=== PATIENT | female | born 1970 | race Caucasian/White ===

== ENCOUNTER 2017-10-24 13:12 | Observation (INO) | payer OTHER ==
--- NOTE | 2017-10-24 13:46 | ED ---
Abdominal Pain HPI - General Source: patient, RN notes reviewed Mode of arrival: ambulatory Limitations: no limitations <Fatimah Johnson - Last Filed: 10/24/17 15:11> <Rich Adams - Last Filed: 10/24/17 16:35> - General Chief Complaint: Abdominal Pain Stated Complaint: Abd Pain Time Seen by Provider: 10/24/17 13:32 - History of Present Illness Initial Comments: This is a 46-year-old female who presents to the emergency department with chief complaint of abdominal pain. Patient states that she has been experiencing right upper quadrant and epigastric abdominal pain on and off for the past year. She states that the pain is sharp and stabbing with radiation to her back. She states that usually the pain lasts for a couple of hours and then goes away. Patient states that she ate dinner last evening. She states that she then developed the abdominal pain at around 6 PM. She states that the pain has not gone away and is constant this time. She admits to nausea but denies vomiting. Denies fevers or chills, chest pain or shortness of breath, diarrhea or constipation, dysuria or hematuria. Patient reports history of appendectomy, section, tubal ligation and uterine ablation. States she takes no medications and has no allergies. (Fatimah Johnson) - Related Data Home Medications Medication Instructions Recorded Confirmed Ranitidine HCl [Zantac] 150 mg PO DAILY PRN 10/24/17 10/24/17 Allergies Allergy/AdvReac Type Severity Reaction Status Date / Time No Known Allergies Allergy Verified 10/24/17 13:42 Review of Systems ROS Other: All systems not noted in ROS Statement are negative. <Fatimah Johnson - Last Filed: 10/24/17 15:11> ROS Other: All systems not noted in ROS Statement are negative. <Rich Adams - Last Filed: 10/24/17 16:35> ROS Statement: Those systems with pertinent positive or pertinent negative responses have been documented in the HPI. Past Medical History Past Medical History: No Reported History Past Surgical History: Ablation, Appendectomy, Section, Tubal Ligation Past Psychological History: No Psychological Hx Reported Smoking Status: Current every day smoker Past Alcohol Use History: Occasional Past Drug Use History: None Reported <Fatimah Johnson - Last Filed: 10/24/17 15:11> General Exam Limitations: no limitations <Fatimah Johnson - Last Filed: 10/24/17 15:11> <Rich Adams - Last Filed: 10/24/17 16:35> - General Exam Comments Initial Comments: General: Awake and alert, well-developed; in no apparent distress. Patient does not appear acutely ill. HEENT: Head atraumatic, normocephalic. Pupils are equal, round and reactive to light. Extraocular movements intact. Oropharynx moist without erythema or exudate. Neck: Supple. Normal ROM. Cardiovascular: Regular rate and rhythm. No murmurs, rubs or gallops. Chest symmetrical. Respiratory: Lungs clear to auscultation bilaterally. No wheezes, rales or rhonchi. Normal respiratory effort with no use of accessory muscles. Abdomen: Soft, non-distended. Tenderness on palpation of the epigastrium and right upper quadrant with associated guarding. No rigidity or rebound. Hyperactive bowel sounds in all 4 quadrants. Musculoskeletal: Normal ROM, no tenderness bilateral upper and lower extremities. Ambulating normally. Skin: [place], warm and dry without rashes or lesions. Neurological: Alert and oriented x3. CN II-XII grossly intact. Speech is fluent and answers are appropriate. No focal neuro deficits. Psychiatric: Normal mood and affect. No overt signs of depression or anxiety noted. (Fatimah Johnson) Course <Elizabeth,Fatimah Wilton - Last Filed: 10/24/17 15:11> <Rich Adams - Last Filed: 10/24/17 16:35> Vital Signs 10/24/17 10/24/17 13:18 15:01 Temperature 98.5 F Pulse Rate 83 65 Respiratory 18 18 Rate Blood Pressure 173/96 126/68 O2 Sat by Pulse 98 98 Oximetry - Reevaluation(s) Reevaluation #1: 10/24/17 16:35 I, Dr. Rich Adams, personally saw and examined the patient. I have reviewed and agree with the PA/SKIP MINER findings including all diagnostic interpretation and treatment plan. I was present for newman portions of any procedures performed and the inclusive time noted for any critical care statement. Rich Adams D.O. (Rich Adams) Medical Decision Making - Lab Data Result diagrams: 10/24/17 14:05 10/24/17 14:05 - Radiology Data Radiology results: report reviewed <Fatimah Johnson - Last Filed: 10/24/17 15:11> - Lab Data Result diagrams: 10/24/17 14:05 10/24/17 14:05 <Rich Adams - Last Filed: 10/24/17 16:35> - Medical Decision Making This is a 46-year-old female who presents to the emergency department with chief complaint of abdominal pain. Patient has had a right upper quadrant/ epigastric abdominal pain on and off for the past year. Patient reports the pain is subsequent to eating. Patient developed abdominal pain last night at 6 PM after eating dinner and the pain has not subsided. Describes the pain as a sharp and shooting with radiation to her back. Admits to nausea but denies vomiting, fevers or chills, constipation or diarrhea. CBC, CMP and UA were unremarkable. Ultrasound of the gallbladder revealed evidence for cholelithiasis with thickened gallbladder wall consistent with cholecystitis. Dr. Adams and myself discussed these findings with patient. She will be admitted to Dr. Gill. She will be started on Rocephin and Flagyl IV. She is kept nothing by mouth. Patient is in agreement for admission. Vital signs are stable and she is in no acute distress. (Fatimah Johnson) - Lab Data Lab Results 10/24/17 10/24/17 10/24/17 Range/Units 13:30 13:30 14:05 WBC (3.8-10.6) k/uL RBC (3.80-5.40) m/uL Hgb (11.4-16.0) gm/dL Hct (34.0-46.0) % MCV (80.0-100.0) fL MCH (25.0-35.0) pg MCHC (31.0-37.0) g/dL RDW (11.5-15.5) % Plt Count (150-450) k/uL Neutrophils % % Lymphocytes % % Monocytes % % Eosinophils % % Basophils % % Neutrophils # (1.3-7.7) k/uL Lymphocytes # (1.0-4.8) k/uL Monocytes # (0-1.0) k/uL Eosinophils # (0-0.7) k/uL Basophils # (0-0.2) k/uL PT (9.0-12.0) sec INR (<1.2) APTT (22.0-30.0) sec Sodium 138 (137-145) mmol/L Potassium 4.1 (3.5-5.1) mmol/L Chloride 105 (98-107) mmol/L Carbon Dioxide 25 (22-30) mmol/L Anion Gap 8 mmol/L BUN 10 (7-17) mg/dL Creatinine 0.60 (0.52-1.04) mg/dL Est GFR (CKD-EPI)AfAm >90 (>60 ml/min/1.73 sqM) Est GFR (CKD-EPI)NonAf >90 (>60 ml/min/1.73 sqM) Glucose 88 (74-99) mg/dL Calcium 9.1 (8.4-10.2) mg/dL Total Bilirubin 0.6 (0.2-1.3) mg/dL AST 26 (14-36) U/L ALT 28 (9-52) U/L Alkaline Phosphatase 81 (38-126) U/L Total Protein 7.4 (6.3-8.2) g/dL Albumin 4.5 (3.5-5.0) g/dL Amylase 44 (30-110) U/L Lipase 72 (23-300) U/L Urine Color Yellow Urine Appearance Clear (Clear) Urine pH 6.0 (5.0-8.0) Ur Specific [place] 1.016 (1.001-1.035) Urine Protein Negative (Negative) Urine Glucose (UA) Negative (Negative) Urine Ketones Negative (Negative) Urine Blood Negative (Negative) Urine Nitrite Negative (Negative) Urine Bilirubin Negative (Negative) Urine Urobilinogen <2.0 (<2.0) mg/dL Ur Leukocyte Esterase Negative (Negative) Urine HCG, Qual Not Detected (Not Detectd) 10/24/17 10/24/17 Range/Units 14:05 14:05 WBC 10.5 (3.8-10.6) k/uL RBC 4.95 (3.80-5.40) m/uL Hgb 14.3 (11.4-16.0) gm/dL Hct 44.5 (34.0-46.0) % MCV 89.9 (80.0-100.0) fL MCH 28.9 (25.0-35.0) pg MCHC 32.2 (31.0-37.0) g/dL RDW 13.2 (11.5-15.5) % Plt Count 304 (150-450) k/uL Neutrophils % 75 % Lymphocytes % 19 % Monocytes % 4 % Eosinophils % 1 % Basophils % 0 % Neutrophils # 7.8 H (1.3-7.7) k/uL Lymphocytes # 2.0 (1.0-4.8) k/uL Monocytes # 0.5 (0-1.0) k/uL Eosinophils # 0.1 (0-0.7) k/uL Basophils # 0.0 (0-0.2) k/uL PT 10.2 (9.0-12.0) sec INR 1.0 (<1.2) APTT 23.7 (22.0-30.0) sec Sodium (137-145) mmol/L Potassium (3.5-5.1) mmol/L Chloride (98-107) mmol/L Carbon Dioxide (22-30) mmol/L Anion Gap mmol/L BUN (7-17) mg/dL Creatinine (0.52-1.04) mg/dL Est GFR (CKD-EPI)AfAm (>60 ml/min/1.73 sqM) Est GFR (CKD-EPI)NonAf (>60 ml/min/1.73 sqM) Glucose (74-99) mg/dL Calcium (8.4-10.2) mg/dL Total Bilirubin (0.2-1.3) mg/dL AST (14-36) U/L ALT (9-52) U/L Alkaline Phosphatase (38-126) U/L Total Protein (6.3-8.2) g/dL Albumin (3.5-5.0) g/dL Amylase (30-110) U/L Lipase (23-300) U/L Urine Color Urine Appearance (Clear) Urine pH (5.0-8.0) Ur Specific [place] (1.001-1.035) Urine Protein (Negative) Urine Glucose (UA) (Negative) Urine Ketones (Negative) Urine Blood (Negative) Urine Nitrite (Negative) Urine Bilirubin (Negative) Urine Urobilinogen (<2.0) mg/dL Ur Leukocyte Esterase (Negative) Urine HCG, Qual (Not Detectd) - Radiology Data Ultrasound gallbladder impression: Cholelithiasis with thickened and edematous gallbladder wall correlate for cholecystitis. (Fatimah Johnson) Disposition Is patient prescribed a controlled substance at d/c from ED?: No Time of Disposition: 15:14 <Fatimah Johnson - Last Filed: 10/24/17 15:11> <Rich Adams - Last Filed: 10/24/17 16:35> Clinical Impression: Acute cholecystitis Disposition: ADMITTED IP TO THIS HOSP Condition: Good
[2017-10-24] MEDS ORDERED: ONDANSETRON 4 MG/2 ML VIAL IVP STA (14:08)
[2017-10-24] MEDS ORDERED: KETOROLAC 30 MG/ML 1 ML VIAL IVP STA (14:08)
[2017-10-24 14:20] LABS: Appearance,Urine Clear (Clear); Bilirubin,Urine Negative (Negative); Blood,Urine Negative (Negative); Color,Urine Yellow; Glucose,Urine (UA) Negative (Negative); Ketones,Urine Negative (Negative); Leukocyte Esterase,Urine Negative (Negative); Nitrite,Urine Negative (Negative); Protein,Urine Negative (Negative); Specific Gravity,Urine 1.016 (1.001-1.035); Urobilinogen,Urine <2.0 mg/dL (<2.0)
[2017-10-24 14:23] LABS: Basophils % (A) 0 %; Eosinophils # (A) 0.1 k/uL (0-0.7); Eosinophils % (A) 1 %; HCT 44.5 % (34.0-46.0); HGB 14.3 gm/dL (11.4-16.0); Lymphocytes % (A) 19 %; MCH 28.9 pg (25.0-35.0); MCHC 32.2 g/dL (31.0-37.0); MCV 89.9 fL (80.0-100.0); Mean Platelet Volume 6.8; Monocytes # (A) 0.5 k/uL (0-1.0); Monocytes % (A) 4 %; Neutrophils # (A) 7.8 k/uL (1.3-7.7); Neutrophils % (A) 75 %; Platelet Count 304 k/uL (150-450); RBC 4.95 m/uL (3.80-5.40); RDW 13.2 % (11.5-15.5); WBC 10.5 k/uL (3.8-10.6)
[2017-10-24 14:29] LABS: Partial Thromboplastin Time 23.7 sec (22.0-30.0); Prothrombin Time 10.2 sec (9.0-12.0)
[2017-10-24 14:31] LABS: ALT 28 U/L (9-52); AST 26 U/L (14-36); Albumin 4.5 g/dL (3.5-5.0); Alkaline Phosphatase 81 U/L (38-126); Amylase 44 U/L (30-110); Anion Gap 8 mmol/L; Blood Urea Nitrogen 10 mg/dL (7-17); Calcium 9.1 mg/dL (8.4-10.2); Carbon Dioxide 25 mmol/L (22-30); Chloride 105 mmol/L (98-107); Glucose 88 mg/dL (74-99); Lipase 72 U/L (23-300); Sodium 138 mmol/L (137-145); Total Bilirubin 0.6 mg/dL (0.2-1.3); Total Protein 7.4 g/dL (6.3-8.2)
[2017-10-24 14:36] LABS: Potassium 4.1 mmol/L (3.5-5.1)
--- NOTE | 2017-10-24 14:45 | US ---
EXAMINATION TYPE: US gallbladder DATE OF EXAM: 10/24/2017 COMPARISON: NONE CLINICAL HISTORY: Pain. Intermittent epigastric pain for 1 year, getting worse EXAM MEASUREMENTS: Liver Length: 13.4 cm Gallbladder Wall: 0.7 cm CBD: 0.5 cm Right Kidney: 10.9 x 4.7 x 4.4 cm Pancreas: limited evaluation due to overlying bowel content Liver: wnl Gallbladder: multiple stones, thickened edematous wall Evidence for sonographic Eller's sign: yes CBD: wnl Right Kidney: no evidence of hydronephrosis IMPRESSION: 1. Cholelithiasis with thickened and edematous gallbladder wall correlate for cholecystitis.
[2017-10-24] MEDS ORDERED: ACETAMINOPHEN TAB 325 MG TAB PO PRN (15:19)
[2017-10-24] MEDS ORDERED: KETOROLAC 30 MG/ML 1 ML VIAL IVP PRN (15:19)
[2017-10-24] MEDS ORDERED: NALOXONE 0.4 MG/ML 1 ML VIAL IV PRN (15:19)
[2017-10-24] MEDS ORDERED: MORPHINE SULFATE 4 MG/ML SYRINGE IV PRN (15:19)
[2017-10-24] MEDS ORDERED: ONDANSETRON 4 MG/2 ML VIAL IVP PRN (15:19)
[2017-10-24] MEDS ORDERED: SODIUM CHLORIDE 0.9% 1,000 ML IV SCH (15:30)
[2017-10-24] MEDS: cefTRIAXone IN SWFI 1,000 MG/10 ML SYRINGE IVP SCH (16:10)
[2017-10-24] MEDS: metroNIDAZOLE-NS PMX 500 MG in SALINE 1 100ML.BAG IVPB SCH (16:15)
[2017-10-24] MEDS: KETOROLAC 30 MG/ML 1 ML VIAL IVP PRN (18:33)
--- NOTE | 2017-10-24 19:07 | P.GSHP ---
History of Present Illness H&P Date: 10/24/17 46-year-old female presents to the emergency department with complaints of epigastric pain that began at night. She states that she has had multiple episodes of this over the last year. She states that every episode has gotten worse. She has not sought out workup for this in the past. She complained of some nausea but denied any emesis episodes. She states her last meal was a avocado and chicken sandwich with kinyarwanda fries. She denies any emesis. She denies any change in bowel function. She states that since her admission to the hospital, her pain has mildly improved. She denies any fevers, chills, chest pain or shortness of breath. She has no additional complaints at this time. - Review of Systems All systems: negative Past Medical History Past Medical History: No Reported History History of Any Multi-Drug Resistant Organisms: None Reported Past Surgical History: Ablation, Appendectomy, Section, Tubal Ligation Past Anesthesia/Blood Transfusion Reactions: No Reported Reaction Past Psychological History: No Psychological Hx Reported Smoking Status: Current every day smoker Past Alcohol Use History: Occasional Past Drug Use History: None Reported Medications and Allergies Home Medications Medication Instructions Recorded Confirmed Type Ranitidine HCl [Zantac] 150 mg PO DAILY PRN 10/24/17 10/24/17 History Allergies Allergy/AdvReac Type Severity Reaction Status Date / Time No Known Allergies Allergy Verified 10/24/17 13:42 Surgical - Exam Osteopathic Statement: *. No significant issues noted on an osteopathic structural exam other than those noted in the History and Physical/Consult. Vital Signs Temp Pulse Resp BP Pulse Ox 98.5 F 83 18 173/96 98 10/24/17 13:18 10/24/17 13:18 10/24/17 13:18 10/24/17 13:18 10/24/17 13:18 - General well developed, well nourished, no distress - Eyes PERRL, normal ocular movement - ENT normal mucosa, no hearing loss - Neck trachea midline - Respiratory No difficulty with respiration - Abdomen Soft, mild tenderness in the epigastrium, distended, no rebound, no guarding - Neurologic normal sensation - Psychiatric oriented to time, oriented to person, oriented to place, speech is normal, memory intact Results - Labs 10/24/17 14:05 10/24/17 14:05 Abnormal Lab Results - Last 24 Hours (Table) 10/24/17 Range/Units 14:05 Neutrophils # 7.8 H (1.3-7.7) k/uL Diabetes panel 10/24/17 Range/Units 14:05 Sodium 138 (137-145) mmol/L Potassium 4.1 (3.5-5.1) mmol/L Chloride 105 (98-107) mmol/L Carbon Dioxide 25 (22-30) mmol/L BUN 10 (7-17) mg/dL Creatinine 0.60 (0.52-1.04) mg/dL Glucose 88 (74-99) mg/dL Calcium 9.1 (8.4-10.2) mg/dL AST 26 (14-36) U/L ALT 28 (9-52) U/L Alkaline Phosphatase 81 (38-126) U/L Total Protein 7.4 (6.3-8.2) g/dL Albumin 4.5 (3.5-5.0) g/dL Calcium panel 10/24/17 Range/Units 14:05 Calcium 9.1 (8.4-10.2) mg/dL Albumin 4.5 (3.5-5.0) g/dL Pituitary panel 10/24/17 Range/Units 14:05 Sodium 138 (137-145) mmol/L Potassium 4.1 (3.5-5.1) mmol/L Chloride 105 (98-107) mmol/L Carbon Dioxide 25 (22-30) mmol/L BUN 10 (7-17) mg/dL Creatinine 0.60 (0.52-1.04) mg/dL Glucose 88 (74-99) mg/dL Calcium 9.1 (8.4-10.2) mg/dL Adrenal panel 10/24/17 Range/Units 14:05 Sodium 138 (137-145) mmol/L Potassium 4.1 (3.5-5.1) mmol/L Chloride 105 (98-107) mmol/L Carbon Dioxide 25 (22-30) mmol/L BUN 10 (7-17) mg/dL Creatinine 0.60 (0.52-1.04) mg/dL Glucose 88 (74-99) mg/dL Calcium 9.1 (8.4-10.2) mg/dL Total Bilirubin 0.6 (0.2-1.3) mg/dL AST 26 (14-36) U/L ALT 28 (9-52) U/L Alkaline Phosphatase 81 (38-126) U/L Total Protein 7.4 (6.3-8.2) g/dL Albumin 4.5 (3.5-5.0) g/dL - Imaging US - abdomen: report reviewed (Bladder wall thickening noted, gallstones noted, pericholecystic fluid noted) Assessment and Plan (1) Acute cholecystitis Narrative/Plan: I did review the abdominal ultrasound with notable gallbladder wall thickening, pericholecystic fluid and gallstones. With findings and symptoms confirming acute cholecystitis, we will begin the patient on antibiotics. Keep the patient nothing by mouth and plan for laparoscopic cholecystectomy. Continue IV fluids. More recommendations after surgery. Current Visit: Yes Status: Acute Code(s): K81.0 - ACUTE CHOLECYSTITIS SNOMED Code(s): 76368293
[2017-10-25] MEDS: SODIUM CHLORIDE 0.9% 1,000 ML IV SCH ×3 (00:06→18:09)
[2017-10-25] MEDS: metroNIDAZOLE-NS PMX 500 MG in SALINE 1 100ML.BAG IVPB SCH ×3 (00:15→18:08)
[2017-10-25] MEDS: cefTRIAXone IN SWFI 1,000 MG/10 ML SYRINGE IVP SCH (08:00)
[2017-10-25] MEDS: KETOROLAC 30 MG/ML 1 ML VIAL IVP PRN ×2 (08:00→18:15)
[2017-10-25 09:43] LABS: ALT 27 U/L (9-52); AST 14 U/L (14-36); Alkaline Phosphatase 68 U/L (38-126); Anion Gap 5 mmol/L; Bilirubin, Delta 0.1 mg/dL (0.0-0.2); Bilirubin,Unconjugated 0.2 mg/dL (0.0-1.1); Blood Urea Nitrogen 11 mg/dL (7-17); Calcium 8.2 mg/dL (8.4-10.2); Carbon Dioxide 28 mmol/L (22-30); Chloride 107 mmol/L (98-107); Glucose 82 mg/dL (74-99); Potassium 4.2 mmol/L (3.5-5.1); Sodium 140 mmol/L (137-145); Total Bilirubin 0.3 mg/dL (0.2-1.3); Total Protein 5.3 g/dL (6.3-8.2)
[2017-10-25 09:52] LABS: Basophils % (A) 0 %; Eosinophils # (A) 0.1 k/uL (0-0.7); Eosinophils % (A) 2 %; HCT 36.8 % (34.0-46.0); HGB 11.6 gm/dL (11.4-16.0); Lymphocytes # (A) 1.4 k/uL (1.0-4.8); Lymphocytes % (A) 35 %; MCH 28.9 pg (25.0-35.0); MCHC 31.7 g/dL (31.0-37.0); MCV 91.4 fL (80.0-100.0); Mean Platelet Volume 6.8; Monocytes # (A) 0.3 k/uL (0-1.0); Monocytes % (A) 8 %; Neutrophils # (A) 2.1 k/uL (1.3-7.7); Neutrophils % (A) 53 %; Platelet Count 223 k/uL (150-450); RBC 4.02 m/uL (3.80-5.40); RDW 13.3 % (11.5-15.5)
[2017-10-25] MEDS ORDERED: IV FLUID CONTINUATION 1,000 ML IV ONE (14:37)
[2017-10-25] MEDS ORDERED: LACTATED RINGERS 1,000 ML IV ONE (14:57)
[2017-10-25] MEDS ORDERED: DEXAMETHASONE SOD PHOSPHATE 10 MG/ML 1 ML VIAL IV ONE (15:02)
[2017-10-25] MEDS ORDERED: HEPARIN SODIUM,PORCINE 5,000 UNIT/ML 1 ML VIAL SQ ONE (15:07)
[2017-10-25] MEDS ORDERED: GLYCOPYRROLATE 0.2 MG/ML 2 ML VIAL ONE (15:10)
[2017-10-25] MEDS ORDERED: ROCURONIUM BROMIDE 10 MG/ML 10 ML VIAL IV ONE (15:10)
[2017-10-25] MEDS ORDERED: LIDOCAINE 1% INJ 10MG/ML (20 ML MDV) ONE (15:10)
[2017-10-25] MEDS ORDERED: SUCCINYLCHOLINE CHLORIDE 100 MG/5 ML SYR IV ONE (15:10)
[2017-10-25] MEDS ORDERED: PROPOFOL 10 MG/ML 20 ML VIAL IV ONE (15:10)
[2017-10-25] MEDS ORDERED: NEOSTIGMINE 1 MG/ML 10 ML VIAL ONE (15:10)
[2017-10-25] MEDS ORDERED: fentaNYL (PF) 50 MCG/ML 2 ML AMP ONE (15:10)
[2017-10-25] MEDS ORDERED: MIDAZOLAM 2 MG/2 ML VIAL ONE (15:10)
[2017-10-25] MEDS ORDERED: BUPIVACAINE (PF) 0.5% 30 ML VIAL SQ ONE (15:29)
[2017-10-25] MEDS ORDERED: MORPHINE SULFATE 2 MG/ML SYRINGE IV PRN (16:13)
--- NOTE | 2017-10-25 16:18 | P.OP ---
Date of Procedure: 10/25/17 Preoperative Diagnosis: Acute cholecystitis Postoperative Diagnosis: Acute cholecystitis Procedure(s) Performed: Laparoscopic cholecystectomy Anesthesia: GUILLE Surgeon: Shirley Gill Estimated Blood Loss (ml): 10 Pathology: other (Gallbladder and contents) Condition: stable Disposition: floor Indications for Procedure: 46-year-old female presented to the emergency department with epigastric and right upper quadrant pain that had been worsening. Secondary to this, workup was performed that illustrated a acute cholecystitis. Secondary this, plan was made for laparoscopic cholecystectomy. The patient was excellent the risks, benefits and alternatives to the procedure. She did provide consent prior to attending the operating suite. Operative Findings: Edematous gallbladder Description of Procedure: The patient was brought into the operating suite and placed in supine position on the operating table. Sedation was provided by anesthesia and the patient underwent endotracheal intubation. The patient was then prepped and draped in regular sterile fashion. Local anesthetic was administered and an infraumbilical incision was made. Dissection was carried to the fascia. Fascia was incised and a 12 mm trocar was entered into the abdomen. Pneumoperitoneum was then achieved. The patient was placed in appropriate position and 3 additional 5 mm ports were placed. One port was placed in the subxiphoid region. 2 additional 5 mm ports were placed in the right upper quadrant. The gallbladder was then grasped and retracted. Dissection was carried along the infundibulum and the cystic duct and cystic artery were visualized. Both the cystic duct and cystic artery were skeletonized. 2 clips were placed proximally on the cystic duct one was placed distally and the cystic duct was ligated. 2 clips were placed proximally on the cystic artery one was placed distally and the cystic artery was ligated. A elective cautery was then used to dissect the gallbladder from the gallbladder fossa on the liver bed. The gallbladder was then placed in an Endo Catch bag and removed from the abdomen. Hemostasis was maintained with electrocautery. Irrigation was then used in the right upper quadrant and suctioned. At this point all trochars removed from the abdomen under direct visualization and pneumoperitoneum was released. The infra umbilical port site fascia was closed with multiple [id number] 0 Vicryl sutures. All skin incisions were then closed with 4-0 Vicryl subcuticular sutures. The patient was awakened in the operating suite and taken to postanesthesia care unit in stable condition.
[2017-10-25 16:31] VITALS: RESP 16
[2017-10-25] MEDS ORDERED: HYDROmorphone 1 MG/ML 1 ML SYRINGE IVP ONE (17:28)
[2017-10-25] MEDS: HYDROcodone/APAP 5-325MG 1 EACH TAB PO PRN (18:09)
[2017-10-26] MEDS: SODIUM CHLORIDE 0.9% 1,000 ML IV SCH ×2 (00:22→07:54)
[2017-10-26] MEDS: metroNIDAZOLE-NS PMX 500 MG in SALINE 1 100ML.BAG IVPB SCH ×2 (00:22→07:54)
[2017-10-26] MEDS: KETOROLAC 30 MG/ML 1 ML VIAL IVP PRN ×2 (03:46→12:25)
[2017-10-26] MEDS: HYDROcodone/APAP 5-325MG 1 EACH TAB PO PRN ×2 (06:07→12:25)
[2017-10-26 06:14] VITALS: BP 106/71; PULSE 64; TEMP 97.6
[2017-10-26] MEDS: cefTRIAXone IN SWFI 1,000 MG/10 ML SYRINGE IVP SCH (07:54)
[2017-10-26 08:58] LABS: Basophils % (A) 0 %; Eosinophils % (A) 0 %; HCT 32.8 % (34.0-46.0); HGB 10.3 gm/dL (11.4-16.0); Lymphocytes % (A) 9 %; MCH 29.1 pg (25.0-35.0); MCHC 31.6 g/dL (31.0-37.0); MCV 92.3 fL (80.0-100.0); Mean Platelet Volume 6.3; Monocytes # (A) 0.4 k/uL (0-1.0); Monocytes % (A) 3 %; Neutrophils # (A) 9.7 k/uL (1.3-7.7); Neutrophils % (A) 87 %; Platelet Count 267 k/uL (150-450); RBC 3.55 m/uL (3.80-5.40); RDW 13.1 % (11.5-15.5); WBC 11.1 k/uL (3.8-10.6)
[2017-10-26 09:15] LABS: ALT 47 U/L (9-52); AST 49 U/L (14-36); Albumin 3.1 g/dL (3.5-5.0); Alkaline Phosphatase 67 U/L (38-126); Anion Gap 6 mmol/L; Bilirubin, Delta 0.2 mg/dL (0.0-0.2); Bilirubin,Unconjugated 0.1 mg/dL (0.0-1.1); Blood Urea Nitrogen 7 mg/dL (7-17); Calcium 8.4 mg/dL (8.4-10.2); Carbon Dioxide 23 mmol/L (22-30); Chloride 111 mmol/L (98-107); Glucose 101 mg/dL (74-99); Potassium 4.8 mmol/L (3.5-5.1); Sodium 140 mmol/L (137-145); Total Bilirubin 0.3 mg/dL (0.2-1.3); Total Protein 5.2 g/dL (6.3-8.2)
--- NOTE | 2017-10-26 09:32 | P.DS ---
Providers Date of admission: 10/24/17 15:21 Attending physician: Shirley Gill DO Primary care physician: Leobardo Arguello - Discharge Diagnosis(es) (1) Acute cholecystitis Current Visit: Yes Status: Acute Hospital Course: 46-year-old female was admitted secondary to epigastric pain and right upper quadrant pain. Diagnosis was acute cholecystitis that was found on workup. On admission day #1, the patient did have a laparoscopic cholecystectomy. She improved from this and postoperative day #1. The pain was well-controlled. The patient denied any nausea. She was tolerating a soft diet. At this point, the patient was deemed stable for discharge. Procedures: Laparoscopic cholecystectomy Patient Condition at Discharge: Good Plan - Discharge Summary Discharge Rx Participant: No New Discharge Prescriptions: New HYDROcodone/APAP 5-325MG [[place] 5-325] 1 each PO Q6HR PRN #12 tab PRN Reason: Moderate Pain Continue Ranitidine HCl [Zantac] 150 mg PO DAILY PRN PRN Reason: Heartburn Discharge Medication List Ranitidine HCl [Zantac] 150 mg PO DAILY PRN 10/24/17 [History] HYDROcodone/APAP 5-325MG [[place] 5-325] 1 each PO Q6HR PRN #12 tab 10/26/17 [Rx] Follow up Appointment(s)/Referral(s): Leobardo Arguello DO [Primary Care Provider] - 10/28/17 3:20 pm Shirley Gill DO [Doctor of Osteopathic Medicine] - 11/07/17 1:45 pm Patient Instructions/Handouts: Laparoscopic Cholecystectomy (DC) Activity/Diet/Wound Care/Special Instructions: Avoid swimming, baths while incisions are healing Avoid fatty, fried, greasy foods No lifting greater than 5 pounds Discharge Disposition: HOME SELF-CARE
[2017-10-26] MEDS ORDERED: metroNIDAZOLE 500 MG TAB PO SCH (16:00)
== END 2017-10-26 13:32 | disposition home or self-care (01) ==
LOC: EC 13:12 → INTOOBSV 15:21 → 4MS4W 15:21 → UNDODISIN 10-26 13:32
PROVIDERS: ADMIT Surgery; ATTEND Surgery
PROC: 0FT44ZZ Resection of Gallbladder, Percutaneous Endoscopic Approach (ICD-10-PCS; principal; 2017-10-25 08:25)
DX: K80.12 Calculus of gallbladder with acute and chronic cholecystitis without obstruction (principal); F17.200 Nicotine dependence, unspecified, uncomplicated; K82.8 Other specified diseases of gallbladder
CPT/HCPCS: 47562; 96376 ×2; 96361 ×3; 96366; 96375 ×2; 96365; 99285; 36415; 81025 ×2; 88304; 80053; 80048 ×2; 80076 ×2; 82150; 83690; 85025 ×3; 85610; 85730; 81003; 87040; 76705; G0378 ×3; J2250; J2270 ×2; J1644; J1100; J2710; J2405; J2001; J0696 ×3; J3010; J1885 ×3; J1170; J0330; J2704

== ENCOUNTER 2019-07-23 19:22 | Emergency (ER) | payer BC, OTHER ==
[2019-07-23 19:28] VITALS: TEMP 97.8
--- NOTE | 2019-07-23 19:58 | ED ---
Chest Pain HPI - General Chief Complaint: Chest Pain Stated Complaint: Chest Pain Time Seen by Provider: 07/23/19 19:30 Source: patient, RN notes reviewed Mode of arrival: ambulatory Limitations: no limitations - History of Present Illness Initial Comments: This is a 40-year-old female with a benign past history other than smoking who states that she had the onset about 40 minutes prior to arrival of mid and right-sided upper chest pain sharp in nature 9/10 severity to radiate up to her neck. Seem to get worse with movement or deep breathing. It lasted perhaps no 40 minutes for the [place] area to driving up here. Currently she is pain-free she said that she felt "weird". She has improved she states she has similar episode about 6 months ago that did not last this long. She does have a history of cholecystectomy and appendectomy no history of any heart or lung disease that she is aware of no family history of heart disease except for mitral valve prolapse and her mother or lung disease at early age no aortic disorders. She's had no other illnesses recently no heavy lifting coughing sneezing no trauma. No other modifying factors. MD Complaint: chest pain - Related Data Home Medications Medication Instructions Recorded Confirmed Ranitidine HCl [Zantac] 150 mg PO DAILY PRN 10/24/17 10/24/17 Previous Rx's Medication Instructions Recorded HYDROcodone/APAP 5-325MG [[place] 1 each PO Q6HR PRN #12 tab 10/26/17 5-325] Dicyclomine [Bentyl] 10 mg PO TID PRN #12 capsule 07/23/19 Allergies Allergy/AdvReac Type Severity Reaction Status Date / Time No Known Allergies Allergy Verified 10/24/17 13:42 Review of Systems ROS Statement: Those systems with pertinent positive or pertinent negative responses have been documented in the HPI. ROS Other: All systems not noted in ROS Statement are negative. EKG Findings - EKG Results: EKG: interpreted by ERMD, sinus rhythm, normal axis, normal QRS, normal ST/T, no acute changes (Normal sinus rhythm a 69. Interval 124 QRS duration 78 QT since QTC 46/[address] configuration.), not changed from: Past Medical History Past Medical History: No Reported History History of Any Multi-Drug Resistant Organisms: None Reported Past Surgical History: Ablation, Appendectomy, Section, Cholecystectomy, Tubal Ligation Past Anesthesia/Blood Transfusion Reactions: No Reported Reaction Past Psychological History: No Psychological Hx Reported Smoking Status: Current every day smoker Past Alcohol Use History: Occasional Past Drug Use History: None Reported General Exam - General Exam Comments Initial Comments: This is a well-developed well-nourished awake alert oriented 3 female Limitations: no limitations General appearance: alert, anxious Head exam: Present: atraumatic, normocephalic, normal inspection Eye exam: Present: normal appearance, PERRL, EOMI. Absent: scleral icterus, conjunctival injection, periorbital swelling ENT exam: Present: normal exam, mucous membranes moist Neck exam: Present: normal inspection, full ROM, other (Stridor JVD or bruits). Absent: tenderness, meningismus, lymphadenopathy Respiratory exam: Present: normal lung sounds bilaterally. Absent: respiratory distress, wheezes, rales, rhonchi, stridor Cardiovascular Exam: Present: regular rate, normal rhythm, normal heart sounds. Absent: systolic murmur, diastolic murmur, rubs, gallop, clicks GI/Abdominal exam: Present: soft, normal bowel sounds. Absent: distended, tenderness, guarding, rebound, rigid Extremities exam: Present: normal inspection, full ROM, normal capillary refill. Absent: tenderness, pedal edema, joint swelling, calf tenderness Back exam: Present: normal inspection Neurological exam: Present: alert, oriented X3, CN II-XII intact Psychiatric exam: Present: normal affect, normal mood Skin exam: Present: warm, dry, intact, normal color. Absent: rash Course Vital Signs 07/23/19 07/23/19 07/23/19 19:25 19:47 20:00 Temperature 97.8 F Pulse Rate 84 74 Pulse Rate [ 69 [employer] ] Respiratory 18 18 Rate Blood Pressure 167/85 164/79 O2 Sat by Pulse 100 99 Oximetry 07/23/19 21:00 Temperature Pulse Rate 59 L Pulse Rate [ [employer] ] Respiratory 16 Rate Blood Pressure 121/69 O2 Sat by Pulse 99 Oximetry Procedures - Smoking Cessation Time Spent Discussing Smoking Cessation w/Patient (Minutes): 3 Patient Acknowledges Need for Cessation: Yes Chest Pain MDM - MDM I did review the imaging and report no acute findings. I did discuss the suspected findings with the patient the initial lab work and workup is negative for evidence of cardiac or pulmonary disease. The likely reason taken secondary to esophageal spasm. Additionally the patient may have an atypical chest wall type discomfort though the clinical exam is not evident. We did a long discussion about the likely possibilities she will be placed on a short courses of Bentyl with follow-up with her doctor I did recommend an outpatient stress test. We also did discuss smoking cessation. Disposition Clinical Impression: Atypical chest pain, Esophageal spasm, Smoking Disposition: HOME SELF-CARE Condition: Good Instructions (If sedation given, give patient instructions): Chest Pain (ED), Esophageal Spasm (ED) Additional Instructions: Medication prescription sent to your preferred pharmacy Prescriptions: Dicyclomine [Bentyl] 10 mg PO TID PRN #12 capsule PRN Reason: Pain Is patient prescribed a controlled substance at d/c from ED?: No Referrals: Leobardo Arguello DO [Primary Care Provider] - 1-2 days
[2019-07-23 20:03] LABS: Basophils % (A) 1 %; Eosinophils # (A) 0.2 k/uL (0-0.7); Eosinophils % (A) 2 %; HCT 47.1 % (34.0-46.0); Lymphocytes # (A) 2.8 k/uL (1.0-4.8); Lymphocytes % (A) 38 %; MCH 29.2 pg (25.0-35.0); MCHC 31.9 g/dL (31.0-37.0); MCV 91.8 fL (80.0-100.0); Mean Platelet Volume 6.9; Monocytes # (A) 0.3 k/uL (0-1.0); Monocytes % (A) 4 %; Neutrophils # (A) 3.9 k/uL (1.3-7.7); Neutrophils % (A) 53 %; Platelet Count 265 k/uL (150-450); RBC 5.13 m/uL (3.80-5.40); RDW 12.6 % (11.5-15.5); WBC 7.4 k/uL (3.8-10.6)
--- NOTE | 2019-07-23 20:09 | XR ---
EXAMINATION TYPE: XR chest 2V DATE OF EXAM: 07/23/2019 COMPARISON: NONE HISTORY: Chest pain into right sided neck and jaw. TECHNIQUE: Frontal and lateral views of the chest are obtained. FINDINGS: Overlying EKG leads are present. There is no focal air space opacity, pleural effusion, or pneumothorax seen. The cardiac silhouette size is within normal limits. The osseous structures are intact. Cholecystectomy clips noted. IMPRESSION: No acute cardiopulmonary process.
[2019-07-23 20:13] LABS: ALT 15 U/L (4-34); AST 23 U/L (14-36); African American GFR (CKD) >90 (>60 ml/min/1.73 sqM); Albumin 4.9 g/dL (3.5-5.0); Alkaline Phosphatase 86 U/L (38-126); Anion Gap 8 mmol/L; Blood Urea Nitrogen 17 mg/dL (7-17); Calcium 9.1 mg/dL (8.4-10.2); Carbon Dioxide 28 mmol/L (22-30); Chloride 103 mmol/L (98-107); Glucose 99 mg/dL (74-99); Non-African American GFR(CKD) >90 (>60 ml/min/1.73 sqM); Potassium 3.8 mmol/L (3.5-5.1); Sodium 139 mmol/L (137-145); Total Bilirubin 0.3 mg/dL (0.2-1.3); Total Protein 7.9 g/dL (6.3-8.2)
[2019-07-23 20:20] LABS: Partial Thromboplastin Time 23.9 sec (22.0-30.0); Prothrombin Time 10.3 sec (9.0-12.0)
[2019-07-23 20:28] LABS: D-Dimer <0.17 mg/L FEU (<0.60)
[2019-07-23 21:11] VITALS: BP 121/69; PULSE 59; RESP 16
== END 2019-07-23 21:53 | disposition home or self-care (01) ==
LOC: EC 19:22
DX: K22.4 Dyskinesia of esophagus (principal); R07.89 Other chest pain; F17.200 Nicotine dependence, unspecified, uncomplicated; Z76.0 Encounter for issue of repeat prescription
CPT/HCPCS: 36415; 71046; 80053; 83690; 83735; 83880; 84484; 85025; 85379; 85610; 85730; 93005; 99285; 99406

== ENCOUNTER 2020-06-13 10:24 | Emergency (ER) | payer BC, OTHER ==
[2020-06-13 10:28] VITALS: TEMP 100.8
[2020-06-13] MEDS ORDERED: SODIUM CHLORIDE 0.9% 1,000 ML IV ONE (10:43)
[2020-06-13] MEDS ORDERED: ACETAMINOPHEN TAB 325 MG TAB PO STA (10:43)
[2020-06-13] MEDS ORDERED: SODIUM CHLORIDE 0.9% 1,000 ML IV SCH (10:45)
[2020-06-13 11:11] LABS: Basophils % (A) 1 %; Eosinophils % (A) 1 %; HCT 43.2 % (34.0-46.0); HGB 14.2 gm/dL (11.4-16.0); Lymphocytes # (A) 0.5 k/uL (1.0-4.8); Lymphocytes % (A) 14 %; MCHC 32.8 g/dL (31.0-37.0); MCV 91.7 fL (80.0-100.0); Mean Platelet Volume 6.6; Monocytes # (A) 0.1 k/uL (0-1.0); Monocytes % (A) 4 %; Neutrophils # (A) 2.8 k/uL (1.3-7.7); Neutrophils % (A) 80 %; Platelet Count 182 k/uL (150-450); RBC 4.71 m/uL (3.80-5.40); WBC 3.5 k/uL (3.8-10.6)
--- NOTE | 2020-06-13 11:18 | XR ---
EXAMINATION TYPE: XR chest 2V DATE OF EXAM: 06/13/2020 COMPARISON: Chest x-ray 07/23/2019 HISTORY: Covid exposure TECHNIQUE: Frontal and lateral views of the chest are obtained. FINDINGS: Nodular density present in the right lower is somewhat more conspicuous than on prior exam . Possible right lower lobe nodule present posterior to the diaphragm on the frontal view. Cardiac me diastinal silhouette is stable. No evident pneumothorax or pleural effusion. IMPRESSION: Findings could possibly represent granulomas within the right lower lobe. No interval ch alvino. No acute cardiopulmonary disease.
--- NOTE | 2020-06-13 11:18 | ED ---
Nausea/Vomiting/Diarrhea HPI - General Chief complaint: Nausea/Vomiting/Diarrhea Stated complaint: sob/dizzy/headach/chills/vomiting Time Seen by Provider: 06/13/20 10:32 Source: patient Mode of arrival: ambulatory Limitations: no limitations - History of Present Illness Initial comments: 49-year-old female with hx of "vaping" who presents today for chief complaint of cold exposure with nausea vomiting diarrhea fevers and body aches. Patient states that since Tuesday she has had body aches fevers she states she has had slight shortness of breath as well as vomiting and diarrhea. Patient states that she believes she has comfortable. Patient denies any pain with deep inspiration chest pain pressure hemoptysis leg swelling calf pain patient denies any respiratory distress. Patient denies any neck stiffness or photophobia. Patient denies bloody vomit or stools she denies any dark black stools. Patient denies abdominal pain. Review of systems negative upon arrival patient appears nontoxic she is in no acute distress she is febrile, with slight elevation of HR. - Related Data Home Medications Medication Instructions Recorded Confirmed Venlafaxine HCl [Effexor] 37.5 mg PO DAILY 06/13/20 06/13/20 Previous Rx's Medication Instructions Recorded Dexamethasone [Decadron] 6 mg PO DAILY 4 Days #4 tablet 06/13/20 Ondansetron Odt [Zofran Odt] 4 mg PO Q8HR PRN 7 Days #21 tab 06/13/20 Allergies Allergy/AdvReac Type Severity Reaction Status Date / Time No Known Allergies Allergy Verified 06/13/20 11:04 Review of Systems ROS Statement: Those systems with pertinent positive or pertinent negative responses have been documented in the HPI. ROS Other: All systems not noted in ROS Statement are negative. Past Medical History Past Medical History: No Reported History History of Any Multi-Drug Resistant Organisms: None Reported Past Surgical History: Ablation, Appendectomy, Section, Cholecystectomy, Tubal Ligation Past Anesthesia/Blood Transfusion Reactions: No Reported Reaction Past Psychological History: No Psychological Hx Reported Smoking Status: Vaper Past Alcohol Use History: Occasional Past Drug Use History: None Reported General Exam - General Exam Comments Initial Comments: General: The patient is awake and alert, in no distress, and does not appear acutely ill. Eye: Pupils are equal, round and reactive to light, extra-ocular movements are intact. No nystagmus. There is normal conjunctiva bilaterally. No signs of icterus. Ears, nose, mouth and throat: There are moist mucous membranes and no oral lesions. Neck: The neck is supple, there is no tenderness or JVD. Cardiovascular: There is a regular rate and rhythm. No murmur, rub or gallop is appreciated. Respiratory: Lungs are clear to auscultation, respirations are non-labored, breath sounds are equal. No wheezes, stridor, rales, or rhonchi. Gastrointestinal: Soft, non-distended, non-tender abdomen without masses or organomegaly noted. There is no rebound or guarding present. Musculoskeletal: Normal ROM, no tenderness. Strength 5/5. Sensation intact. Radial pulses equal bilaterally 2+. Neurological: A&O x 3. CN II-XII intact grossly, There are no obvious motor or sensory deficits. Coordination appears grossly intact. Speech is normal. Skin: Skin is warm and dry and no rashes or lesions are noted. No lower extremity edema calf pain or swelling Psychiatric: Cooperative, appropriate mood & affect, normal judgment. Limitations: no limitations Course Vital Signs 06/13/20 06/13/20 10:26 11:51 Temperature 100.8 F H Pulse Rate 102 H 100 Respiratory 22 20 Rate Blood Pressure 130/62 133/72 O2 Sat by Pulse 96 95 Oximetry Medical Decision Making - Medical Decision Making Patient has mild leukopenia. Patient has vomiting diarrhea cough body aches headaches--appearing consistent with a viral syndrome. Patient is comfortable with positive. Moving complaint was nausea vomiting. Nausea was controlled in the emergency department. Lab stable electrolytes within acceptable limits. Patient hydrated. Patient does not appear to Respiratory distress. Chest x-ray revealed possible granuloma--otherwise within normal limits. Patient oxygenated well on room air. Patient was febrile with mild tachycardia on arrival which is felt to be related to the fever patient does not appear septic or toxic.At this time after discussing the case with him and provided we feel patient is stable for discharge with outpatient pcp f/u and oral steroids. patient agreeable to this care plan and discharge at this time. Return parameters and symptomatic monitoring discussed. - Lab Data Result diagrams: 06/13/20 10:51 06/13/20 10:51 Lab Results 06/13/20 06/13/20 06/13/20 Range/Units 10:51 10:51 10:51 WBC 3.5 L (3.8-10.6) k/uL RBC 4.71 (3.80-5.40) m/uL Hgb 14.2 (11.4-16.0) gm/dL Hct 43.2 (34.0-46.0) % MCV 91.7 (80.0-100.0) fL MCH 30.0 (25.0-35.0) pg MCHC 32.8 (31.0-37.0) g/dL RDW 13.0 (11.5-15.5) % Plt Count 182 (150-450) k/uL MPV 6.6 Neutrophils % 80 % Lymphocytes % 14 % Monocytes % 4 % Eosinophils % 1 % Basophils % 1 % Neutrophils # 2.8 (1.3-7.7) k/uL Lymphocytes # 0.5 L (1.0-4.8) k/uL Monocytes # 0.1 (0-1.0) k/uL Eosinophils # 0.0 (0-0.7) k/uL Basophils # 0.0 (0-0.2) k/uL Sodium 141 (137-145) mmol/L Potassium 4.0 (3.5-5.1) mmol/L Chloride 107 (98-107) mmol/L Carbon Dioxide 24 (22-30) mmol/L Anion Gap 10 mmol/L BUN 11 (7-17) mg/dL Creatinine 0.79 (0.52-1.04) mg/dL Est GFR (CKD-EPI)AfAm >90 (>60 ml/min/1.73 sqM) Est GFR (CKD-EPI)NonAf 89 (>60 ml/min/1.73 sqM) Glucose 95 (74-99) mg/dL Calcium 8.5 (8.4-10.2) mg/dL Magnesium 1.7 (1.6-2.3) mg/dL Total Bilirubin 0.3 (0.2-1.3) mg/dL AST 39 H (14-36) U/L ALT 25 (4-34) U/L Alkaline Phosphatase 99 (38-126) U/L Total Protein 6.8 (6.3-8.2) g/dL Albumin 4.0 (3.5-5.0) g/dL Urine Color Urine Appearance (Clear) Urine pH (5.0-8.0) Ur Specific [place] (1.001-1.035) Urine Protein (Negative) Urine Glucose (UA) (Negative) Urine Ketones (Negative) Urine Blood (Negative) Urine Nitrite (Negative) Urine Bilirubin (Negative) Urine Urobilinogen (<2.0) mg/dL Ur Leukocyte Esterase (Negative) Coronavirus (PCR) Detected A (Not Detectd) 06/13/20 Range/Units 12:42 WBC (3.8-10.6) k/uL RBC (3.80-5.40) m/uL Hgb (11.4-16.0) gm/dL Hct (34.0-46.0) % MCV (80.0-100.0) fL MCH (25.0-35.0) pg MCHC (31.0-37.0) g/dL RDW (11.5-15.5) % Plt Count (150-450) k/uL MPV Neutrophils % % Lymphocytes % % Monocytes % % Eosinophils % % Basophils % % Neutrophils # (1.3-7.7) k/uL Lymphocytes # (1.0-4.8) k/uL Monocytes # (0-1.0) k/uL Eosinophils # (0-0.7) k/uL Basophils # (0-0.2) k/uL Sodium (137-145) mmol/L Potassium (3.5-5.1) mmol/L Chloride (98-107) mmol/L Carbon Dioxide (22-30) mmol/L Anion Gap mmol/L BUN (7-17) mg/dL Creatinine (0.52-1.04) mg/dL Est GFR (CKD-EPI)AfAm (>60 ml/min/1.73 sqM) Est GFR (CKD-EPI)NonAf (>60 ml/min/1.73 sqM) Glucose (74-99) mg/dL Calcium (8.4-10.2) mg/dL Magnesium (1.6-2.3) mg/dL Total Bilirubin (0.2-1.3) mg/dL AST (14-36) U/L ALT (4-34) U/L Alkaline Phosphatase (38-126) U/L Total Protein (6.3-8.2) g/dL Albumin (3.5-5.0) g/dL Urine Color Yellow Urine Appearance Clear (Clear) Urine pH 5.5 (5.0-8.0) Ur Specific [place] 1.030 (1.001-1.035) Urine Protein Trace H (Negative) Urine Glucose (UA) Negative (Negative) Urine Ketones 1+ H (Negative) Urine Blood Negative (Negative) Urine Nitrite Negative (Negative) Urine Bilirubin Negative (Negative) Urine Urobilinogen <2.0 (<2.0) mg/dL Ur Leukocyte Esterase Negative (Negative) Coronavirus (PCR) (Not Detectd) Disposition Clinical Impression: Nausea & vomiting, Dyspnea, Diarrhea, COVID-19, Lung granuloma Disposition: HOME SELF-CARE Condition: Good Instructions (If sedation given, give patient instructions): Coronavirus Dise ase 2019 (COVID-19), Acute Nausea and Vomiting (ED), Acute Diarrhea (ED) Additional Instructions: Please use medication as discussed. Please follow-up with family doctor in the next 2 days . If develop worsening shortness of breath or develop chest pain/leg swelling/calf pain return to ER. Obtain pulse ox at home as discussed and return for levels <93% or feeling more short of breath. Please return to emergency room if the symptoms increase or worsen or for any other concerns. Prescriptions: Dexamethasone [Decadron] 6 mg PO DAILY 4 Days #4 tablet Ondansetron Odt [Zofran Odt] 4 mg PO Q8HR PRN 7 Days #21 tab PRN Reason: Nausea Is patient prescribed a controlled substance at d/c from ED?: No Referrals: Leobardo Arguello DO [Primary Care Provider] - 1-2 days Time of Disposition: 13:00
[2020-06-13 11:20] LABS: Chloride 107 mmol/L (98-107)
[2020-06-13 11:23] LABS: ALT 25 U/L (4-34); AST 39 U/L (14-36); African American GFR (CKD) >90 (>60 ml/min/1.73 sqM); Alkaline Phosphatase 99 U/L (38-126); Anion Gap 10 mmol/L; Blood Urea Nitrogen 11 mg/dL (7-17); Calcium 8.5 mg/dL (8.4-10.2); Carbon Dioxide 24 mmol/L (22-30); Glucose 95 mg/dL (74-99); Magnesium 1.7 mg/dL (1.6-2.3); Non-African American GFR(CKD) 89 (>60 ml/min/1.73 sqM); Sodium 141 mmol/L (137-145); Total Bilirubin 0.3 mg/dL (0.2-1.3); Total Protein 6.8 g/dL (6.3-8.2)
[2020-06-13] MEDS ORDERED: ONDANSETRON 4 MG/2 ML VIAL IVP STA (11:42)
[2020-06-13 11:52] VITALS: BP 133/72; PULSE 100; RESP 20
[2020-06-13 12:56] LABS: Appearance,Urine Clear (Clear); Bilirubin,Urine Negative (Negative); Blood,Urine Negative (Negative); Color,Urine Yellow; Glucose,Urine (UA) Negative (Negative); Ketones,Urine 1+ (Negative); Leukocyte Esterase,Urine Negative (Negative); Nitrite,Urine Negative (Negative); PH, Urine 5.5 (5.0-8.0); Protein,Urine Trace (Negative); Urobilinogen,Urine <2.0 mg/dL (<2.0)
== END 2020-06-13 13:33 | disposition home or self-care (01) ==
LOC: EC 10:24
DX: U07.1 COVID-19 (principal); J84.10 Pulmonary fibrosis, unspecified; Z20.822 Contact with and (suspected) exposure to COVID-19; Z90.49 Acquired absence of other specified parts of digestive tract; Z90.09 Acquired absence of other part of head and neck
CPT/HCPCS: 36415; 80053; 83735; 85025; 81003; 87635; 71046; 99284; 96374; J2405

== ENCOUNTER 2020-06-19 18:53 | Inpatient (IN) | payer BC, OTHER ==
--- NOTE | 2020-06-19 20:00 | XR ---
EXAMINATION TYPE: XR chest 2V DATE OF EXAM: 06/19/2020 COMPARISON: 06/13/2020 HISTORY: Pneumonia. Chest pain TECHNIQUE: FINDINGS: Heart and mediastinum are normal. There is a coarse predominantly interstitial infiltrate t hroughout the lungs. There is no pulmonary mass. There are no hilar masses. There is no pleural effus ion. IMPRESSION: There is new coarse interstitial pneumonia compared to old exam. Normal heart.
[2020-06-19 21:58] LABS: Basophils % (A) 0 %; Eosinophils % (A) 1 %; HCT 40.6 % (34.0-46.0); Lymphocytes # (A) 0.7 k/uL (1.0-4.8); Lymphocytes % (A) 22 %; MCH 28.6 pg (25.0-35.0); MCHC 31.9 g/dL (31.0-37.0); MCV 89.6 fL (80.0-100.0); Mean Platelet Volume 6.8; Monocytes # (A) 0.1 k/uL (0-1.0); Monocytes % (A) 2 %; Neutrophils # (A) 2.4 k/uL (1.3-7.7); Neutrophils % (A) 73 %; Platelet Count 346 k/uL (150-450); RBC 4.53 m/uL (3.80-5.40); RDW 13.5 % (11.5-15.5); WBC 3.3 k/uL (3.8-10.6)
[2020-06-19 22:13] LABS: ALT 37 U/L (4-34); AST 48 U/L (14-36); African American GFR (CKD) >90 (>60 ml/min/1.73 sqM); Albumin 3.1 g/dL (3.5-5.0); Alkaline Phosphatase 111 U/L (38-126); Anion Gap 10 mmol/L; Blood Urea Nitrogen 17 mg/dL (7-17); Calcium 8.4 mg/dL (8.4-10.2); Carbon Dioxide 27 mmol/L (22-30); Chloride 100 mmol/L (98-107); Glucose 86 mg/dL (74-99); LDH 1397 U/L (313-618); Non-African American GFR(CKD) >90 (>60 ml/min/1.73 sqM); Partial Thromboplastin Time 29.8 sec (22.0-30.0); Potassium 3.7 mmol/L (3.5-5.1); Prothrombin Time 10.3 sec (9.0-12.0); Sodium 137 mmol/L (137-145); Total Bilirubin 0.3 mg/dL (0.2-1.3); Total Protein 5.8 g/dL (6.3-8.2)
[2020-06-19 22:23] LABS: D-Dimer 1.38 mg/L FEU (<0.60)
[2020-06-19] MEDS ORDERED: DEXAMETHASONE SOD PHOSPHATE 4 MG/ML 1 ML VIAL IV STA (22:27)
[2020-06-19 22:43] LABS: C Reactive Protein 395.4 mg/L (<10.0)
--- NOTE | 2020-06-19 22:45 | ED ---
URI HPI - General Source: patient Mode of arrival: ambulatory Limitations: no limitations <Prerna Gonzalez - Last Filed: 06/19/20 23:01> <Tamara Wilkinson - Last Filed: 06/20/20 13:59> - General Chief Complaint: Upper Respiratory Infection Stated Complaint: revisit- Covid+, SOB, N/V/D Time Seen by Provider: 06/19/20 20:47 - History of Present Illness Initial Comments: 49-year-old female presenting today for chief complaint of worsening shortness of breath. Patient states proximal 6 days ago she was diagnosed with Covid 19. Patient states her shortness of breath has only worsened. Patient states that she continues to have cough nausea vomiting diarrhea. She denies any rashes. She denies a bloody vomit or stools. Patient denies extremity swelling hemoptysis, or chest pain pressure, denies jaw or arm pain. Patient admits to body aches and fevers. Patient states her dyspnea was concerning today thus pre senting to the ER. Remaining ROS (-). (Prerna Gonzalez) - Related Data Home Medications Medication Instructions Recorded Confirmed Venlafaxine HCl [Effexor XR] 37.5 mg PO DAILY 06/19/20 06/19/20 Previous Rx's Medication Instructions Recorded Ondansetron Odt [Zofran Odt] 4 mg PO Q8HR PRN 7 Days #21 tab 06/13/20 Allergies Allergy/AdvReac Type Severity Reaction Status Date / Time No Known Allergies Allergy Verified 06/19/20 21:09 Review of Systems ROS Other: All systems not noted in ROS Statement are negative. <Prerna Gonzalez - Last Filed: 06/19/20 23:01> ROS Other: All systems not noted in ROS Statement are negative. <Tamara Wilkinson - Last Filed: 06/20/20 13:59> ROS Statement: Those systems with pertinent positive or pertinent negative responses have been documented in the HPI. Past Medical History Past Medical History: No Reported History History of Any Multi-Drug Resistant Organisms: None Reported Past Surgical History: Ablation, Appendectomy, Section, Cholecystectomy, Tubal Ligation Past Anesthesia/Blood Transfusion Reactions: No Reported Reaction Past Psychological History: No Psychological Hx Reported Smoking Status: Vaper Past Alcohol Use History: Occasional Past Drug Use History: None Reported <Prerna Gonzalez - Last Filed: 06/19/20 23:01> General Exam Limitations: no limitations <Prerna Gonzalez - Last Filed: 06/19/20 23:01> - General Exam Comments Initial Comments: General: The patient is awake and alert, in no distress Eye: +3 mm pupils are equal, round and reactive to light, extra-ocular movements are intact. No nystagmus. There is normal conjunctiva bilaterally. No signs of icterus. Ears, nose, mouth and throat: There are moist mucous membranes and no oral lesions. Neck: The neck is supple, there is no tenderness or JVD. Cardiovascular: There is a regular rate and rhythm. No murmur, rub or gallop is appreciated. Respiratory: Respirations are mildly-labored, breath sounds are equal. No wheezes, stridor. Scatttered rhonchi/crackles. Gastrointestinal: Soft, non-distended, non-tender abdomen without masses or organomegaly noted. There is no rebound or guarding present. Musculoskeletal: Normal ROM, no tenderness. Strength 5/5. Sensation intact. Radial and DP pulses equal bilaterally 2+. Neurological: A&O x 3. CN II-XII intact grossly, There are no obvious motor or sensory deficits. Coordination appears grossly intact. Speech is normal. Skin: Skin is warm and dry and no rashes or lesions are noted. No calf pain or extremity swelling Psychiatric: Cooperative, appropriate mood & affect, normal judgment. (Prerna Gonzalez) Course Vital Signs 06/19/20 06/19/20 06/19/20 19:11 20:49 22:58 Temperature 98.2 F 98.2 F Pulse Rate 77 65 76 Respiratory 18 18 16 Rate Blood Pressure 124/73 118/77 O2 Sat by Pulse 94 L 92 L 92 L Oximetry 06/20/20 06/20/20 06/20/20 00:38 05:41 08:00 Temperature 98.6 F Pulse Rate 64 Respiratory 17 20 Rate Blood Pressure 130/80 O2 Sat by Pulse 98 95 Oximetry 06/20/20 06/20/20 06/20/20 08:44 09:05 09:30 Temperature 98.3 F Pulse Rate 72 Respiratory 20 Rate Blood Pressure 109/74 O2 Sat by Pulse 94 L 88 L 91 L Oximetry 06/20/20 06/20/20 11:29 12:00 Temperature Pulse Rate 70 Respiratory 20 20 Rate Blood Pressure 109/74 O2 Sat by Pulse 91 L Oximetry Medical Decision Making - Lab Data Result diagrams: 06/19/20 21:38 06/19/20 21:38 <Prerna Gonzalez - Last Filed: 06/19/20 23:01> - Lab Data Result diagrams: 06/19/20 21:38 06/19/20 21:38 <Tamara Wilkinson - Last Filed: 06/20/20 13:59> - Medical Decision Making 49-year-old female presenting today for chief complaint of dyspnea with covid 19 diagnosis. Patient has new interstitial pneumonia on chest x-ray. She is oxygen consistently at 91-92%. Mild work of breathing. Patient DImer elevated, CTA (-) for PE. given extensive feature of pna with the hypoxia pt will be admitted for monitoring of respiratory status. pulm consultation. (Prerna Gonzalez) I was available for consultation in the emergency department. The history and physical exam were done by the midlevel provider. I was consulted for this patients care. I reviewed the case with the midlevel provider and based on their presentation of the patient, I agree with the assessment, medical decision making and plan of care as documented. Chart was dictated using [employer] dictation software. Attempts were made to correct any dictation errors however some typographical errors may persist. Patient was seen during a national state of emergency due to the Covid-19 pandemic. (Tamara Wilkinson) - Lab Data Lab Results 06/19/20 06/19/20 06/19/20 Range/Units 21:38 21:38 21:38 WBC 3.3 L (3.8-10.6) k/uL RBC 4.53 (3.80-5.40) m/uL Hgb 13.0 (11.4-16.0) gm/dL Hct 40.6 (34.0-46.0) % MCV 89.6 (80.0-100.0) fL MCH 28.6 (25.0-35.0) pg MCHC 31.9 (31.0-37.0) g/dL RDW 13.5 (11.5-15.5) % Plt Count 346 (150-450) k/uL MPV 6.8 Neutrophils % 73 % Lymphocytes % 22 % Monocytes % 2 % Eosinophils % 1 % Basophils % 0 % Neutrophils # 2.4 (1.3-7.7) k/uL Lymphocytes # 0.7 L (1.0-4.8) k/uL Monocytes # 0.1 (0-1.0) k/uL Eosinophils # 0.0 (0-0.7) k/uL Basophils # 0.0 (0-0.2) k/uL PT 10.3 (9.0-12.0) sec INR 1.0 (<1.2) APTT 29.8 (22.0-30.0) sec D-Dimer 1.38 H (<0.60) mg/L FEU Sodium 137 (137-145) mmol/L Potassium 3.7 (3.5-5.1) mmol/L Chloride 100 (98-107) mmol/L Carbon Dioxide 27 (22-30) mmol/L Anion Gap 10 mmol/L BUN 17 (7-17) mg/dL Creatinine 0.72 (0.52-1.04) mg/dL Est GFR (CKD-EPI)AfAm >90 (>60 ml/min/1.73 sqM) Est GFR (CKD-EPI)NonAf >90 (>60 ml/min/1.73 sqM) Glucose 86 (74-99) mg/dL Plasma Lactic Acid Yang (0.7-2.0) mmol/L Calcium 8.4 (8.4-10.2) mg/dL Magnesium 2.0 (1.6-2.3) mg/dL Ferritin 819.9 H (10.0-291.0) ng/mL Total Bilirubin 0.3 (0.2-1.3) mg/dL AST 48 H (14-36) U/L ALT 37 H (4-34) U/L Alkaline Phosphatase 111 (38-126) U/L Lactate Dehydrogenase 1397 H (313-618) U/L C-Reactive Protein 395.4 H (<10.0) mg/L Total Protein 5.8 L (6.3-8.2) g/dL Albumin 3.1 L (3.5-5.0) g/dL Procalcitonin (0.02-0.09) ng/mL 06/19/20 06/19/20 Range/Units 21:38 21:38 WBC (3.8-10.6) k/uL RBC (3.80-5.40) m/uL Hgb (11.4-16.0) gm/dL Hct (34.0-46.0) % MCV (80.0-100.0) fL MCH (25.0-35.0) pg MCHC (31.0-37.0) g/dL RDW (11.5-15.5) % Plt Count (150-450) k/uL MPV Neutrophils % % Lymphocytes % % Monocytes % % Eosinophils % % Basophils % % Neutrophils # (1.3-7.7) k/uL Lymphocytes # (1.0-4.8) k/uL Monocytes # (0-1.0) k/uL Eosinophils # (0-0.7) k/uL Basophils # (0-0.2) k/uL PT (9.0-12.0) sec INR (<1.2) APTT (22.0-30.0) sec D-Dimer (<0.60) mg/L FEU Sodium (137-145) mmol/L Potassium (3.5-5.1) mmol/L Chloride (98-107) mmol/L Carbon Dioxide (22-30) mmol/L Anion Gap mmol/L BUN (7-17) mg/dL Creatinine (0.52-1.04) mg/dL Est GFR (CKD-EPI)AfAm (>60 ml/min/1.73 sqM) Est GFR (CKD-EPI)NonAf (>60 ml/min/1.73 sqM) Glucose (74-99) mg/dL Plasma Lactic Acid Yang 1.1 (0.7-2.0) mmol/L Calcium (8.4-10.2) mg/dL Magnesium (1.6-2.3) mg/dL Ferritin (10.0-291.0) ng/mL Total Bilirubin (0.2-1.3) mg/dL AST (14-36) U/L ALT (4-34) U/L Alkaline Phosphatase (38-126) U/L Lactate Dehydrogenase (313-618) U/L C-Reactive Protein (<10.0) mg/L Total Protein (6.3-8.2) g/dL Albumin (3.5-5.0) g/dL Procalcitonin 4.23 H (0.02-0.09) ng/mL Disposition Is patient prescribed a controlled substance at d/c from ED?: No Time of Disposition: 23:01 Decision to Admit Reason: Admit from EC Decision Date: 06/19/20 Decision Time: 23:01 <Prerna Gonzalez - Last Filed: 06/19/20 23:01> <Tamara Wilkinson - Last Filed: 06/20/20 13:59> Clinical Impression: Pneumonia due to COVID-19 virus, Hypoxia, Dyspnea Disposition: ADMITTED IP TO THIS HOSP Condition: Stable
--- NOTE | 2020-06-19 22:59 | CT ---
EXAMINATION TYPE: CT chest angio for PE DATE OF EXAM: 06/19/2020 COMPARISON: None HISTORY: PE Chest pain CT DLP: 211.7 mGycm Automated exposure control for dose reduction was used. CONTRAST: Performed with IV Contrast, patient injected with 60 mL of Isovue 370. There are 3-D post processed images. There is coarse interstitial and airspace infiltrate in both lungs. This involves upper and lower lob es bilaterally. There is relative sparing of the left upper lobe. There are a few paratracheal lymph nodes that measure up to 1 cm. There are bilateral bronchial lymph nodes up to 1 cm. Thoracic aorta is intact. There is no aneurysm or dissection. There is normal contrast opacification of the pulmonary arteries. There is no evidence of filling def ect. There is small right pleural effusion. The thoracic spine is intact. Sternum is intact. The ribs appe ar intact. Upper abdominal soft tissues appear intact. IMPRESSION: No evidence of pulmonary embolism. Extensive bilateral pulmonary infiltrates consistent with pneumonia.
[2020-06-19] MEDS ORDERED: NALOXONE 0.4 MG/ML 1 ML VIAL IV PRN (23:03)
[2020-06-20] MEDS ORDERED: REMDESIVIR 200 MG in SODIUM CHLORIDE 0.9% 250 ML IVPB ONE (09:00)
[2020-06-20] MEDS: dexAMETHasone 2 MG TAB PO SCH (09:29)
[2020-06-20] MEDS: ASCORBIC ACID 500 MG TAB PO SCH (09:29)
[2020-06-20] MEDS: ZINC SULFATE 220 MG CAP PO SCH (09:29)
[2020-06-20] MEDS: ENOXAPARIN 40 MG/0.4 ML SYRINGE SQ SCH (09:29)
[2020-06-20] MEDS: CHOLECALCIFEROL 25 MCG (1000 IU) TABLET PO SCH (09:29)
[2020-06-20 09:31] LABS: Ferritin 819.9 ng/mL (10.0-291.0)
--- NOTE | 2020-06-20 10:22 | P.CNPUL ---
History of Present Illness Consult date: 06/20/20 Requesting physician: Leobardo Arguello Reason for consult: dyspnea, cough, hypoxemia, pneumonia, abnormal CXR/CT Chief complaint: Shortness of breath, cough, fever, fatigue. History of present illness: 49-year-old female, who presents to the emergency department, with complaints of worsening shortness of breath. She states that she's been sick for about 6-7 days. She apparently tested positive for COVID 19 6 days ago. She was hoping to be able to weather the storm at home, but her symptoms worsened, and she decided to come in to be evaluated. She had all the typical symptoms of coronavirus infection. She had shortness of breath, cough, pain in the chest when she coughs, nausea, vomiting, diarrhea, headache, and just feeling very weak and fatigued. She lost some muscle aches and joint aches as well. We saw the patient in the emergency department. She was resting comfortably. She was on 2 L nasal cannula. When she was seen initially in the emergency department 6 days ago, she was discharged with some Zofran and Decadron. She states that those medications really did not seem to help very much. Her primary care physician is Dr. Leobardo Arguello. She really doesn't have much in the way of medical problems. She has had a tubal ligation, cholecystectomy, , appendectomy, and an ablation. She does vape. She denies use of tobacco products. White count is 3.3, with a lymphocyte of 0.7, hemoglobin 13, hematocrit 40.6, normal platelet count. Sodium 137, potassium 3.7, chloride 100, CO2 27, anion gap 10, BUN 17, and creatinine 0.72. D-dimer was 1.38. Ferritin is 320, AST 48, ALT 37, LDH 1397, C-reactive protein 395, and albumin 3.1. Review of Systems REVIEW OF SYSTEMS: CONSTITUTIONAL: Fever, chills, muscle aches, joint aches, and fatigue. NEUROLOGIC: [ Negative.] HEENT: [ Negative.] CARDIAC: [Negative.] PULMONARY: Shortness of breath, chest congestion, painful cough. GI: Nausea and vomiting. : [Negative.] RHEUMATOLOGIC: [ Negative.] IMMUNOLOGIC: [ Negative.] ENDOCRINE: [Negative. ] DERMATOLOGIC: [Negative.] Past Medical History Past Medical History: No Reported History History of Any Multi-Drug Resistant Organisms: None Reported Past Surgical History: Ablation, Appendectomy, Section, Cholecystectomy, Tubal Ligation Past Anesthesia/Blood Transfusion Reactions: No Reported Reaction Past Psychological History: No Psychological Hx Reported Smoking Status: Vaper Past Alcohol Use History: Occasional Past Drug Use History: None Reported Medications and Allergies Home Medications Medication Instructions Recorded Confirmed Type Ondansetron Odt [Zofran Odt] 4 mg PO Q8HR PRN 7 Days #21 tab 06/13/20 06/19/20 Rx Venlafaxine HCl [Effexor XR] 37.5 mg PO DAILY 06/19/20 06/19/20 History Allergies Allergy/AdvReac Type Severity Reaction Status Date / Time No Known Allergies Allergy Verified 06/19/20 21:09 Physical Exam Osteopathic Statement: *. No significant issues noted on an osteopathic structural exam other than those noted in the History and Physical/Consult. Vitals: Vital Signs Temp Pulse Resp BP Pulse Ox 06/20/20 09:05 88 L 06/20/20 08:44 98.3 F 72 20 109/74 94 L 06/20/20 05:41 98.6 F 64 17 130/80 95 06/20/20 00:38 98 06/19/20 22:58 76 16 92 L 06/19/20 20:49 98.2 F 65 18 118/77 92 L 06/19/20 19:11 98.2 F 77 18 124/73 94 L Intake and Output 06/19/20 06/20/20 06/20/20 22:59 06:59 14:59 Other: Weight 56.699 kg No acute distress, oriented 3. Patient's saturations on room air only 88%, on 2 L, 94%. No conversational dyspnea, or use of accessory muscles. HEENT examination is grossly unremarkable. Mucous membranes are moist. No oral lesions. Neck supple. Full range of motion. No adenopathy thyromegaly or neck vein distention. Cardiovascular examination reveals regular rhythm rate. S1-S2 normal. No S3 or S4. No discernible murmur noted. Heart rate 72 bpm. Lungs reveal bilateral rhonchi and bibasilar crackles. No wheezes. Breath sounds equal bilaterally. Abdomen soft bowel sounds are heard. No masses or tenderness. Extremities are intact. No cyanosis clubbing or edema. Skin is without rash or lesion. Neurologic examination is brief but nonfocal. Results - Laboratory Findings CBC and BMP: 06/19/20 21:38 06/19/20 21:38 PT/INR, D-dimer PT 10.3 sec (9.0-12.0) 06/19/20 21:38 INR 1.0 (<1.2) 06/19/20 21:38 D-Dimer 1.38 mg/L FEU (<0.60) H 06/19/20 21:38 Abnormal lab findings: Abnormal Labs 06/19/20 06/19/20 03 21:38 21:38 21:38 WBC 3.3 L Lymphocytes # 0.7 L D-Dimer 1.38 H Ferritin 819.9 H AST 48 H ALT 37 H Lactate Dehydrogenase 1397 H C-Reactive Protein 395.4 H Total Protein 5.8 L Albumin 3.1 L - Diagnostic Findings Chest x-ray: image reviewed CT scan - chest: image reviewed Assessment and Plan Assessment: Acute hypoxemic respiratory failure secondary to COVID 19 pneumonia. No other significant past medical history. History of vaping. Plan: Plan dated 06/20/2020. The patient will get REM, Decadron, vitamins, and Lovenox. The vitamins will be vitamin C, vitamin D3, and zinc. She is not a candidate for anything else at this time. We will continue to follow her very closely. She'll need follow-up chest x-rays, and lab work including inflammatory markers. I've counseled about the importance of not vaping ever again. Additional recommendations and suggestions are forthcoming. Prognosis is guarded. The initial REM dose is 200 mg, followed by 100 mg for the next 4 days. We will continue to follow this patient. Time with Patient: Greater than 30
--- NOTE | 2020-06-20 15:16 | P.HPIM ---
History of Present Illness Patient is pleasant 49-year-old female came in with complaints of Qian's weakness tiredness and was tested positive for overweight and 19 about 6 days ago and patient was having symptoms for about 10 days. Patient's son was diagnosed with Colazal and patient says she has all the symptoms of "including body aches fever chills, nausea vomiting diarrhea along with the loss of sense of smell feels fatigued, still having fevers. Patient was seen in ER about 6 days ago was sent home on Zofran and Decadron. Patient is requiring oxygen patient is being admitted for that reason. Patient does have elevated inflammatory markers with d-dimer of around 1.3 Review of Systems REVIEW OF SYSTEMS: CONSTITUTIONAL: As mentioned in HPI HEENT: No recent visual problems or hearing problems. Denied any sore throat. CARDIOVASCULAR: No chest pain, orthopnea, PND, no palpitations, no syncope. PULMONARY: As mentioned in HPI GASTROINTESTINAL: As mentioned in HPI NEUROLOGICAL: No headaches, no weakness, no numbness. HEMATOLOGICAL: Denies any bleeding or petechiae. GENITOURINARY: Denies any burning micturition, frequency, or urgency. MUSCULOSKELETAL/RHEUMATOLOGICAL: Denies any joint pain, swelling, or any muscle pain. ENDOCRINE: Denies any polyuria or polydipsia. The rest of the 14-point review of systems is negative. Past Medical History Past Medical History: No Reported History History of Any Multi-Drug Resistant Organisms: None Reported Past Surgical History: Ablation, Appendectomy, Section, Cholecystectomy, Tubal Ligation Past Anesthesia/Blood Transfusion Reactions: No Reported Reaction Past Psychological History: No Psychological Hx Reported Smoking Status: Vaper Past Alcohol Use History: Occasional Past Drug Use History: None Reported Medications and Allergies Home Medications Medication Instructions Recorded Confirmed Type Ondansetron Odt [Zofran Odt] 4 mg PO Q8HR PRN 7 Days #21 tab 06/13/20 06/19/20 Rx Venlafaxine HCl [Effexor XR] 37.5 mg PO DAILY 06/19/20 06/19/20 History Allergies Allergy/AdvReac Type Severity Reaction Status Date / Time No Known Allergies Allergy Verified 06/19/20 21:09 Physical Exam Vitals: Vital Signs Temp Pulse Resp BP Pulse Ox 06/20/20 12:00 20 06/20/20 11:29 70 20 109/74 91 L 06/20/20 09:30 91 L 06/20/20 09:05 88 L 06/20/20 08:44 98.3 F 72 20 109/74 94 L 06/20/20 08:00 20 06/20/20 05:41 98.6 F 64 17 130/80 95 06/20/20 00:38 98 06/19/20 22:58 76 16 92 L 06/19/20 20:49 98.2 F 65 18 118/77 92 L 06/19/20 19:11 98.2 F 77 18 124/73 94 L PHYSICAL EXAMINATION: GENERAL: The patient is alert and oriented x3, not in any acute distress. Well developed, well nourished. HEENT: Pupils are round and equally reacting to light. EOMI. No scleral icterus. No conjunctival pallor. Normocephalic, atraumatic. No pharyngeal erythema. No thyromegaly. CARDIOVASCULAR: S1 and S2 present. No murmurs, rubs, or gallops. PULMONARY: Bilateral rhonchi and bibasilar crackles no wheezing ABDOMEN: Soft, nontender, nondistended, normoactive bowel sounds. No palpable organomegaly. MUSCULOSKELETAL: No joint swelling or deformity. EXTREMITIES: No cyanosis, clubbing, or pedal edema. NEUROLOGICAL: Gross neurological examination did not reveal any focal deficits. SKIN: No rashes. Note: Because of COVID 19 isolation, some of the history and physical exam findings are indirect and obtained from nursing staff, and other physician examinations to avoid unnecessary contact with the patient. Results CBC & Chem 7: 06/19/20 21:38 06/19/20 21:38 Labs: Abnormal Lab Results - Last 24 Hours (Table) 06/19/20 06/19/20 06/19/20 Range/Units 21:38 21:38 21:38 WBC 3.3 L (3.8-10.6) k/uL Lymphocytes # 0.7 L (1.0-4.8) k/uL D-Dimer 1.38 H (<0.60) mg/L FEU Ferritin 819.9 H (10.0-291.0) ng/mL AST 48 H (14-36) U/L ALT 37 H (4-34) U/L Lactate Dehydrogenase 1397 H (313-618) U/L C-Reactive Protein 395.4 H (<10.0) mg/L Total Protein 5.8 L (6.3-8.2) g/dL Albumin 3.1 L (3.5-5.0) g/dL Procalcitonin (0.02-0.09) ng/mL 06/19/20 Range/Units 21:38 WBC (3.8-10.6) k/uL Lymphocytes # (1.0-4.8) k/uL D-Dimer (<0.60) mg/L FEU Ferritin (10.0-291.0) ng/mL AST (14-36) U/L ALT (4-34) U/L Lactate Dehydrogenase (313-618) U/L C-Reactive Protein (<10.0) mg/L Total Protein (6.3-8.2) g/dL Albumin (3.5-5.0) g/dL Procalcitonin 4.23 H (0.02-0.09) ng/mL Assessment and Plan Plan: -Acute hypoxic respiratory failure secondary to covid19 pneumonia: Patient will be started on Remdesivir, Decadron vitamins and Lovenox. Monitor elevated markers. Patient will be started and continued on IV fluids -Elevated d-dimer secondary to infection patient is on Lovenox at this time -Depression -Due to prophylaxis with Lovenox. Prophylaxis Pepcid
[2020-06-20] MEDS ORDERED: ACETAMINOPHEN TAB 325 MG TAB PO PRN (22:54)
[2020-06-20] MEDS ORDERED: ONDANSETRON 4 MG/2 ML VIAL IVP PRN (23:15)
[2020-06-21] MEDS: REMDESIVIR 100 MG in SODIUM CHLORIDE 0.9% 250 ML IVPB SCH (08:49)
[2020-06-21] MEDS: dexAMETHasone 2 MG TAB PO SCH (08:49)
[2020-06-21] MEDS: CHOLECALCIFEROL 25 MCG (1000 IU) TABLET PO SCH (08:49)
[2020-06-21] MEDS: ASCORBIC ACID 500 MG TAB PO SCH (08:50)
[2020-06-21] MEDS: ENOXAPARIN 40 MG/0.4 ML SYRINGE SQ SCH (08:50)
[2020-06-21] MEDS: ZINC SULFATE 220 MG CAP PO SCH (08:50)
[2020-06-21] MEDS ORDERED: VENLAFAXINE HCL ER 37.5 MG CAP PO SCH (09:00)
[2020-06-21 11:34] LABS: HGB 12.7 g/dL (12.0-15.0); MCH 29.1 pg (27.0-32.0); MCHC 32.6 g/dL (32.0-37.0); MCV 89.4 fL (80.0-97.0); Mean Platelet Volume 9.4 fL (9.5-12.2); Platelet Count 408 X 10*3/uL (140-440); RBC 4.36 X 10*6/uL (4.10-5.20); RDW 13.5 % (11.5-14.5); WBC 6.22 X 10*3/uL (4.50-10.00)
[2020-06-21 11:42] LABS: Anion Gap 6.3 mmol/L (4.00-12.00); Calcium 8.7 mg/dL (8.7-10.3); Carbon Dioxide 28.7 mmol/L (21.6-31.8); Potassium 5.2 mmol/L (3.5-5.5)
--- NOTE | 2020-06-21 15:18 | P.PN ---
Subjective Progress Note Date: 06/21/20 Principal diagnosis: COVID 19 pneumonia. 49-year-old female, who presents to the emergency department, with complaints of worsening shortness of breath. She states that she's been sick for about 6-7 days. She apparently tested positive for COVID 19 6 days ago. She was hoping to be able to weather the storm at home, but her symptoms worsened, and she decided to come in to be evaluated. She had all the typical symptoms of coronavirus infection. She had shortness of breath, cough, pain in the chest when she coughs, nausea, vomiting, diarrhea, headache, and just feeling very weak and fatigued. She lost some muscle aches and joint aches as well. We saw the patient in the emergency department. She was resting comfortably. She was on 2 L nasal cannula. When she was seen initially in the emergency department 6 days ago, she was discharged with some Zofran and Decadron. She states that those medications really did not seem to help very much. Her primary care phy gisselleian is Dr. Leobardo Arguello. She really doesn't have much in the way of medical problems. She has had a tubal ligation, cholecystectomy, , appendectomy, and an ablation. She does vape. She denies use of tobacco products. White count is 3.3, with a lymphocyte of 0.7, hemoglobin 13, hemat ocrit 40.6, normal platelet count. Sodium 137, potassium 3.7, chloride 100, CO2 27, anion gap 10, BUN 17, and creatinine 0.72. D-dimer was 1.38. Ferritin is 320, AST 48, ALT 37, LDH 1397, C-reactive protein 395, and albumin 3.1. Progress note dated 06/21/2020. 49-year-old female we saw in consultation yesterday. She presented to the emergency department with complaints of increasing and progressive shortness of breath. She's been sick for about 6 or 7 days. She tested positive for COVID 19 7 days ago. She was trying to take care of herself at home, and trying to avoid the hospital, but when her symptoms worsen, she came in to be evaluated. She is feeling a bit better today. She is on O2 at 2 L. Saturations are 93%. Temperature is normal. Blood pressure is stable. White count 6.22, hemoglobin 12.7, hematocrit 39.0, and platelet count 408,000. D-dimer is 1.38. Sodium 140, potassium 5.2, chlorides 105, CO2 29, anion gap 6, BUN 18, and creatinine 0.6. Computed tomography scan showed extensive bilateral pulmonary infiltrates consistent with COVID 19 pneumonitis. Objective - Vital Signs Vital signs: Vital Signs Temp 97.7 F 06/21/20 14:08 Pulse 78 06/21/20 14:08 Resp 18 06/21/20 14:08 BP 148/84 06/21/20 14:08 Pulse Ox 93 L 06/21/20 14:08 Intake & Output 06/20/20 06/21/20 06/21/20 18:59 06:59 18:59 Intake Total 400 Balance 400 Weight 56.699 kg Intake: Oral 400 Other: # Voids 1 - Exam No acute distress, oriented 3. Patient's saturations on room air only 88%, on 2 L, 93%. No conversational dyspnea, or use of accessory muscles. HEENT examination is grossly unremarkable. Mucous membranes are moist. No oral lesions. Neck supple. Full range of motion. No adenopathy thyromegaly or neck vein distention. Cardiovascular examination reveals regular rhythm rate. S1-S2 normal. No S3 or S4. No discernible murmur noted. Heart rate 78 bpm. Lungs reveal bilateral rhonchi and bibasilar crackles. No wheezes. Breath sounds equal bilaterally. Breath sounds are diminished throughout. Abdomen soft bowel sounds are heard. No masses or tenderness. Extremities are intact. No cyanosis clubbing or edema. Skin is without rash or lesion. Neurologic examination is brief but nonfocal. - Labs CBC & Chem 7: 06/21/20 07:40 06/21/20 07:40 Labs: Abnormal Lab Results - Last 24 Hours (Table) 06/21/20 06/21/20 Range/Units 07:40 07:40 MPV 9.4 L (9.5-12.2) fL BUN/Creatinine Ratio 30.00 H (12.00-20.00) Ratio Glucose 115 H (70-110) mg/dL Microbiology - Last 24 Hours (Table) 06/19/20 22:54 Blood Culture - Preliminary Blood No Growth after 24 hours 06/19/20 21:38 Blood Culture - Preliminary Blood No Growth after 24 hours Assessment and Plan Assessment: Acute hypoxemic respiratory failure secondary to COVID 19 pneumonia. No other significant past medical history. History of vaping. Plan: Plan dated 06/20/2020. The patient will get REM, Decadron, vitamins, and Lovenox. The vitamins will be vitamin C, vitamin D3, and zinc. She is not a candidate for anything else at this time. We will continue to follow her very closely. She'll need follow-up chest x-rays, and lab work including inflammatory markers. I've counseled about the importance of not vaping ever again. Additional recommendations and suggestions are forthcoming. Prognosis is guarded. The initial REM dose is 200 mg, followed by 100 mg for the next 4 days. We will continue to follow this patient. Plan dated 06/21/2020. The patient gets REM, Decadron, vitamin C, vitamin D3, zinc, and Lovenox. She is not a candidate for anything else at this time. She seems to be a bit better today. We will continue to follow make additional recommendations were appropriate. Periodic chest x-rays will be done as well as inflammatory markers. No additional recommendations are made at this time. Prognosis is guarded. Labs, x-rays, and medications, all reviewed. Time with Patient: Less than 30
--- NOTE | 2020-06-21 16:32 | P.PN ---
Subjective Patient is pleasant 49-year-old female came in with complaints of generalized weakness tiredness and was tested positive for overweight and 19 about 6 days ago and patient was having symptoms for about 10 days. Patient's son was diagnosed with Colazal and patient says she has all the symptoms of "including body aches fever chills, nausea vomiting diarrhea along with the loss of sense of smell feels fatigued, still having fevers. Patient was seen in ER about 6 days ago was sent home on Zofran and Decadron. Patient is requiring oxygen fausto ent is being admitted for that reason. Patient does have elevated inflammatory markers with d-dimer of around 1.3. 06/21/2020 Patient overall looks much better today but still on 2 L of oxygen patient was started on Remdesivir by pulmonology. Probably can wean her off oxygen today and possibly discharge tomorrow, patient's nausea improved diarrhea improved no vomiting. Constitutional: Still bit tired Cardio vascular: denied any chest pain, palpitations Gastrointestinal denied any nausea vomiting Pulmonary: Still short of breath cough Neurologic denied any new focal deficits All inpatient medications were reviewed and appropriate changes in these medications as dictated in the interval history and assessment and plan. Objective - Vital Signs Vital signs: Vital Signs Temp 97.7 F 06/21/20 14:08 Pulse 78 06/21/20 14:08 Resp 18 06/21/20 14:08 BP 148/84 06/21/20 14:08 Pulse Ox 93 L 06/21/20 14:08 Intake & Output 06/20/20 06/21/20 06/21/20 18:59 06:59 18:59 Intake Total 400 Balance 400 Weight 56.699 kg Intake: Oral 400 Other: # Voids 1 - Exam PHYSICAL EXAMINATION: GENERAL: The patient is alert and oriented x3, not in any acute distress. Well developed, well nourished. HEENT: Pupils are round and equally reacting to light. EOMI. No scleral icterus. No conjunctival pallor. Normocephalic, atraumatic. No pharyngeal erythema. No thyromegaly. CARDIOVASCULAR: S1 and S2 present. No murmurs, rubs, or gallops. PULMONARY: Chest is clear to auscultation, no wheezing or crackles. ABDOMEN: Soft, nontender, nondistended, normoactive bowel sounds. No palpable organomegaly. MUSCULOSKELETAL: No joint swelling or deformity. EXTREMITIES: No cyanosis, clubbing, or pedal edema. NEUROLOGICAL: Gross neurological examination did not reveal any focal deficits. SKIN: No rashes. - Labs CBC & Chem 7: 06/21/20 07:40 06/21/20 07:40 Labs: Abnormal Lab Results - Last 24 Hours (Table) 06/21/20 06/21/20 Range/Units 07:40 07:40 MPV 9.4 L (9.5-12.2) fL BUN/Creatinine Ratio 30.00 H (12.00-20.00) Ratio Glucose 115 H (70-110) mg/dL Microbiology - Last 24 Hours (Table) 06/19/20 22:54 Blood Culture - Preliminary Blood No Growth after 24 hours 06/19/20 21:38 Blood Culture - Preliminary Blood No Growth after 24 hours Assessment and Plan Plan: -Acute hypoxic respiratory failure secondary to covid19 pneumonia: Patient is on Remdesivir, Decadron vitamins and Lovenox. Monitor elevated markers. Patient will be continued on IV fluids -Elevated d-dimer secondary to infection patient is on Lovenox at this time -Depression -Due to prophylaxis with Lovenox. Prophylaxis Pepcid
[2020-06-21] MEDS: TEMAZEPAM 15 MG CAP PO PRN (23:27)
[2020-06-22] MEDS: dexAMETHasone 2 MG TAB PO SCH (09:33)
[2020-06-22] MEDS: CHOLECALCIFEROL 25 MCG (1000 IU) TABLET PO SCH (09:33)
[2020-06-22] MEDS: ASCORBIC ACID 500 MG TAB PO SCH (09:33)
[2020-06-22] MEDS: ZINC SULFATE 220 MG CAP PO SCH (09:33)
[2020-06-22] MEDS: ENOXAPARIN 40 MG/0.4 ML SYRINGE SQ SCH (09:33)
[2020-06-22] MEDS: REMDESIVIR 100 MG in SODIUM CHLORIDE 0.9% 250 ML IVPB SCH (09:34)
--- NOTE | 2020-06-22 11:34 | P.PN ---
Subjective Patient is pleasant 49-year-old female came in with complaints of generalized weakness tiredness and was tested positive for overweight and 19 about 6 days ago and patient was having symptoms for about 10 days. Patient's son was diagnosed with Colazal and patient says she has all the symptoms of "including body aches fever chills, nausea vomiting diarrhea along with the loss of sense of smell feels fatigued, still having fevers. Patient was seen in ER about 6 days ago was sent home on Zofran and Decadron. Patient is requiring oxygen fausto ent is being admitted for that reason. Patient does have elevated inflammatory markers with d-dimer of around 1.3. 06/21/2020 Patient overall looks much better today but still on 2 L of oxygen patient was started on Remdesivir by pulmonology. Probably can wean her off oxygen today and possibly discharge tomorrow, patient's nausea improved diarrhea improved no vomiting. 06/22/2020 Patient is still requiring oxygen desaturating without oxygen. Because of which patient will be monitored one more night will recheck oxygen saturations tomorrow. Overall patient is feeling much better. Constitutional: Still bit tired Cardio vascular: denied any chest pain, palpitations Gastrointestinal denied any nausea vomiting Pulmonary: Still short of breath cough Neurologic denied any new focal deficits All inpatient medications were reviewed and appropriate changes in these medications as dictated in the interval history and assessment and plan. Objective - Vital Signs Vital signs: Vital Signs Temp 97.7 F 06/22/20 09:40 Pulse 68 06/22/20 09:40 Resp 20 06/22/20 09:40 BP 168/90 06/22/20 09:40 Pulse Ox 94 L 06/22/20 09:40 Intake & Output 06/21/20 06/22/20 06/22/20 18:59 06:59 18:59 Intake Total 800 Balance 800 Intake: Oral 800 Other: # Voids 2 1 - Exam PHYSICAL EXAMINATION: GENERAL: The patient is alert and oriented x3, not in any acute distress. Well developed, well nourished. HEENT: Pupils are round and equally reacting to light. EOMI. No scleral icterus. No conjunctival pallor. Normocephalic, atraumatic. No pharyngeal erythema. No thyromegaly. CARDIOVASCULAR: S1 and S2 present. No murmurs, rubs, or gallops. PULMONARY: Chest is clear to auscultation, no wheezing or crackles. ABDOMEN: Soft, nontender, nondistended, normoactive bowel sounds. No palpable organomegaly. MUSCULOSKELETAL: No joint swelling or deformity. EXTREMITIES: No cyanosis, clubbing, or pedal edema. NEUROLOGICAL: Gross neurological examination did not reveal any focal deficits. SKIN: No rashes. - Labs CBC & Chem 7: 06/21/20 07:40 06/21/20 07:40 Labs: Abnormal Lab Results - Last 24 Hours (Table) 06/21/20 06/21/20 Range/Units 07:40 07:40 MPV 9.4 L (9.5-12.2) fL BUN/Creatinine Ratio 30.00 H (12.00-20.00) Ratio Glucose 115 H (70-110) mg/dL Microbiology - Last 24 Hours (Table) 06/19/20 22:54 Blood Culture - Preliminary Blood No Growth after 48 hours 06/19/20 21:38 Blood Culture - Preliminary Blood No Growth after 48 hours Assessment and Plan Plan: -Acute hypoxic respiratory failure secondary to covid19 pneumonia: Patient is on Remdesivir, Decadron vitamins and Lovenox. Monitor elevated markers. Patient will be continued on IV fluids -Elevated d-dimer secondary to infection patient is on Lovenox at this time -Depression -Due to prophylaxis with Lovenox. Prophylaxis Pepcid
--- NOTE | 2020-06-22 14:31 | P.PN ---
Subjective Progress Note Date: 06/22/20 Principal diagnosis: COVID 19 pneumonia. 49-year-old female, who presents to the emergency department, with complaints of worsening shortness of breath. She states that she's been sick for about 6-7 days. She apparently tested positive for COVID 19 6 days ago. She was hoping to be able to weather the storm at home, but her symptoms worsened, and she decided to come in to be evaluated. She had all the typical symptoms of coronavirus infection. She had shortness of breath, cough, pain in the chest when she coughs, nausea, vomiting, diarrhea, headache, and just feeling very weak and fatigued. She lost some muscle aches and joint aches as well. We saw the patient in the emergency department. She was resting comfortably. She was on 2 L nasal cannula. When she was seen initially in the emergency department 6 days ago, she was discharged with some Zofran and Decadron. She states that those medications really did not seem to help very much. Her primary care phy gisselleian is Dr. Leobardo Arguello. She really doesn't have much in the way of medical problems. She has had a tubal ligation, cholecystectomy, , appendectomy, and an ablation. She does vape. She denies use of tobacco products. White count is 3.3, with a lymphocyte of 0.7, hemoglobin 13, hemat ocrit 40.6, normal platelet count. Sodium 137, potassium 3.7, chloride 100, CO2 27, anion gap 10, BUN 17, and creatinine 0.72. D-dimer was 1.38. Ferritin is 320, AST 48, ALT 37, LDH 1397, C-reactive protein 395, and albumin 3.1. Progress note dated 06/21/2020. 49-year-old female we saw in consultation yesterday. She presented to the emergency department with complaints of increasing and progressive shortness of breath. She's been sick for about 6 or 7 days. She tested positive for COVID 19 7 days ago. She was trying to take care of herself at home, and trying to avoid the hospital, but when her symptoms worsen, she came in to be evaluated. She is feeling a bit better today. She is on O2 at 2 L. Saturations are 93%. Temperature is normal. Blood pressure is stable. White count 6.22, hemoglobin 12.7, hematocrit 39.0, and platelet count 408,000. D-dimer is 1.38. Sodium 140, potassium 5.2, chlorides 105, CO2 29, anion gap 6, BUN 18, and creatinine 0.6. Computed tomography scan showed extensive bilateral pulmonary infiltrates consistent with COVID 19 pneumonitis. Progress note dated 06/22/2020. 49-year-old female, who was seen in consultation at couple days ago. She presented to the emergency department with complaints of increasing and progressive shortness of breath. She been sick for about 6 or 7 days and she tested positive for COVID 19, 8 days ago. She was trying to maintain herself at home and take care of herself at home and trying to avoid hospitalization. When her symptoms became worse, she came into the hospital to be evaluated. Currently, she is on 2 L nasal cannula with saturation of 92%. When I first went into the room, she was not on any supplemental oxygen, and her saturations were in the mid 70s. The patient feels about the same today as she did yesterday. No better, and no worse. No new laboratory data to report. No new chest x-ray. The patient is getting vitamin C, vitamin D3, Decadron, Lovenox, REM, and zinc. Objective - Vital Signs Vital signs: Vital Signs Temp 98.1 F 06/22/20 13:48 Pulse 74 06/22/20 13:48 Resp 20 06/22/20 13:48 BP 132/70 06/22/20 13:48 Pulse Ox 94 L 06/22/20 09:40 Intake & Output 06/21/20 06/22/20 06/22/20 18:59 06:59 18:59 Intake Total 800 Balance 800 Intake: Oral 800 Other: # Voids 2 1 - Exam No acute distress, oriented 3. Patient's saturations on room air only high 70s %, on 2 L, 93%. No conversational dyspnea, or use of accessory muscles. HEENT examination is grossly unremarkable. Mucous membranes are moist. No oral lesions. Neck supple. Full range of motion. No adenopathy thyromegaly or neck vein distention. Cardiovascular examination reveals regular rhythm rate. S1-S2 normal. No S3 or S4. No discernible murmur noted. Heart rate 74 bpm. Lungs reveal bilateral rhonchi and bibasilar crackles. No wheezes. Breath sounds equal bilaterally. Breath sounds are diminished throughout. Breath sounds are unchanged. Abdomen soft bowel sounds are heard. No masses or tenderness. Extremities are intact. No cyanosis clubbing or edema. Skin is without rash or lesion. Neurologic examination is brief but nonfocal. - Labs CBC & Chem 7: 06/21/20 07:40 06/21/20 07:40 Labs: Microbiology - Last 24 Hours (Table) 06/19/20 22:54 Blood Culture - Preliminary Blood No Growth after 48 hours 06/19/20 21:38 Blood Culture - Preliminary Blood No Growth after 48 hours Assessment and Plan Assessment: Acute hypoxemic respiratory failure secondary to COVID 19 pneumonia. No other significant past medical history. History of vaping. Plan: Plan dated 06/22/2020. The patient continues on oxygen therapy at 2 L. On room air, her saturations are in the high 70s. The patient is receiving all appropriate medications including vitamin C, vitamin D3, zinc, Decadron, albuterol inhaler, Lovenox, and REM repeat a chest x-ray in the morning. No additional recommendations are made. We will continue to follow make recommendations were appropriate. Prognosis is guarded. Time with Patient: Less than 30
[2020-06-22] MEDS: TEMAZEPAM 15 MG CAP PO PRN (22:34)
[2020-06-23] MEDS: ASCORBIC ACID 500 MG TAB PO SCH (07:40)
[2020-06-23] MEDS: ZINC SULFATE 220 MG CAP PO SCH (07:40)
[2020-06-23] MEDS: ENOXAPARIN 40 MG/0.4 ML SYRINGE SQ SCH (07:40)
[2020-06-23] MEDS: dexAMETHasone 2 MG TAB PO SCH (07:40)
[2020-06-23] MEDS: CHOLECALCIFEROL 25 MCG (1000 IU) TABLET PO SCH (07:40)
[2020-06-23] MEDS: REMDESIVIR 100 MG in SODIUM CHLORIDE 0.9% 250 ML IVPB SCH (07:40)
--- NOTE | 2020-06-23 10:29 | XR ---
EXAMINATION TYPE: XR chest 1V portable DATE OF EXAM: 06/23/2020 COMPARISON: Chest x-ray 06/19/2020 HISTORY: Covid pneumonia TECHNIQUE: Single frontal view of the chest is obtained. FINDINGS: Bilateral airspace disease persists. There is no evident pneumothorax or pleural effusion. Cardiac mediastinal silhouette shows no interval change. Surgical clips are present right upper quad rant. There are overlying artifacts. IMPRESSION: Findings consistent with patient's history of pneumonia.
--- NOTE | 2020-06-23 12:12 | P.PN ---
Subjective Progress Note Date: 06/23/20 06/23/2020 maintained on Covid regimen including Remdesevir. Maintaining O2 sats in the 90s on 2 L nasal cannula. Afebrile, normal WBC. Chest x-ray reporting bilateral airspace disease persists. Denies chest pain, palpitations. Objective - Vital Signs Vital signs: Vital Signs Temp 98.4 F 06/23/20 09:55 Pulse 64 06/23/20 09:55 Resp 18 06/23/20 09:55 BP 166/89 06/23/20 09:55 Pulse Ox 94 L 06/23/20 09:55 Intake & Output 06/22/20 06/23/20 06/23/20 18:59 06:59 18:59 Other: # Voids 3 1 - Exam PHYSICAL EXAMINATION: GENERAL:alert and oriented x3, no acute distress. HEENT: Pupils are round and equal, EOMI. No scleral icterus. No conjunctival pallor. Normocephalic, atraumatic. No pharyngeal erythema. CARDIOVASCULAR: S1 and S2 present. No murmurs, rubs, or gallops. PULMONARY: Chest is clear to auscultation, no wheezing or crackles. ABDOMEN: Soft, nontender, nondistended, normoactive bowel sounds. No palpable organomegaly. EXTREMITIES: No cyanosis, clubbing, or pedal edema. NEUROLOGICAL: Gross neurological examination did not reveal any focal deficits. SKIN: Warm and dry, No rashes. - Labs CBC & Chem 7: 06/21/20 07:40 06/21/20 07:40 Labs: Microbiology - Last 24 Hours (Table) 06/19/20 22:54 Blood Culture - Preliminary Blood No Growth after 72 hours 06/19/20 21:38 Blood Culture - Preliminary Blood No Growth after 72 hours Assessment and Plan Assessment: -Acute hypoxic respiratory failure secondary to covid19 pneumonia -Elevated d-dimer secondary to infection patient is on Lovenox at this time -History of vaping -Depression Plan: Continue on current medication regime ,monitoring and symptomatic treatment. Continue on IV fluid hydration,Remdesivir, Decadron vitamins and Lovenox. Continues to require 2 L nasal cannula O2, close monitoring of O2 sats. Follow closely with pulmonary. The impression and plan of care has been dictated as directed. : I performed a history and examination of this patient, discussed the same with the dictator. I agree with the dictator's note ,documented as a scribe. Any additional findings or plans will be noted.
--- NOTE | 2020-06-23 14:16 | P.PN ---
Subjective Progress Note Date: 06/23/20 COVID 19 pneumonia. 49-year-old female, who presents to the emergency department, with complaints of worsening shortness of breath. She states that she's been sick for about 6-7 days. She apparently tested positive for COVID 19 6 days ago. She was hoping to be able to weather the storm at home, but her symptoms worsened, and she decided to come in to be evaluated. She had all the typical symptoms of coronavirus infection. She had shortness of breath, cough, pain in the chest when she coughs, nausea, vomiting, diarrhea, headache, and just feeling very weak and fatigued. She lost some muscle aches and joint aches as well. We saw the patient in the emergency department. She was resting comfortably. She was on 2 L nasal cannula. When she was seen initially in the emergency department 6 days ago, she was discharged with some Zofran and Decadron. She states that those medications really did not seem to help very much. Her primary care physician is Dr. Leobardo Arguello. She really doesn't have much in the way of medical problems. She has had a tubal ligation, cholecystectomy, , appendectomy, and an ablation. She does vape. She denies use of tobacco products. White count is 3.3, with a lymphocyte of 0.7, hemoglobin 13, hematocrit 40.6, normal platelet count. Sodium 137, potassium 3.7, chloride 100, CO2 27, anion gap 10, BUN 17, and creatinine 0.72. D-dimer was 1.38. Ferritin is 320, AST 48, ALT 37, LDH 1397, C-reactive protein 395, and albumin 3.1. Progress note dated 06/21/2020. 49-year-old female we saw in consultation yesterday. She presented to the [facility] department with complaints of increasing and progressive shortness of breath. She's been sick for about 6 or 7 days. She tested positive for COVID 19 7 days ago. She was trying to take care of herself at home, and trying to avoid the hospital, but when her symptoms worsen, she came in to be evaluated. She is feeling a bit better today. She is on O2 at 2 L. Saturations are 93%. Temperature is normal. Blood pressure is stable. White count 6.22, hemoglobin 12.7, hematocrit 39.0, and platelet count 408,000. D-dimer is 1.38. Sodium 140, potassium 5.2, chlorides 105, CO2 29, anion gap 6, BUN 18, and creatinine 0.6. Computed tomography scan showed extensive bilateral pulmonary infiltrates consistent with COVID 19 pneumonitis. Progress note dated 06/22/2020. 49-year-old female, who was seen in consultation at couple days ago. She presented to the emergency department with complaints of increasing and progressive shortness of breath. She been sick for about 6 or 7 days and she tested positive for COVID 19, 8 days ago. She was trying to maintain herself at home and take care of herself at home and trying to avoid hospitalization. When her symptoms became worse, she came into the hospital to be evaluated. Currently, she is on 2 L nasal cannula with saturation of 92%. When I first went into the room, she was not on any supplemental oxygen, and her saturations were in the mid 70s. The patient feels about the same today as she did yesterday. No better, and no worse. No new laboratory data to report. No new chest x-ray. The patient is getting vitamin C, vitamin D3, Decadron, Lovenox, REM, and zinc. On today's evaluation of 06/23/2020 the patient is completing a course of REM and tomorrow will be day #5 and as such today is day #4. She is in hypoxic r espiratory failure and she is on oxygen at 2 L per minute nasal cannula. She is doing well. No respiratory difficulties. The patient is doing well for now. She is on 2 L about 2 by nasal cannula. She is resting comfortably in bed. No new issues for now. No respiratory difficulties. Treatment is and progress regarding her Covid 19 related pneumonia and respiratory failure. She is also on Decadron. She is on REM day for and she is also on Lovenox. Objective - Vital Signs Vital signs: Vital Signs Temp 98.4 F 06/23/20 09:55 Pulse 64 06/23/20 09:55 Resp 18 06/23/20 09:55 BP 166/89 06/23/20 09:55 Pulse Ox 94 L 06/23/20 09:55 Intake & Output 06/22/20 06/23/20 06/23/20 18:59 06:59 18:59 Other: # Voids 3 1 - Exam No acute distress, oriented 3. Patient's saturations on 2 L, 93%. No conversational dyspnea, or use of accessory muscles. HEENT examination is grossly unremarkable. Mucous membranes are moist. No oral lesions. Neck supple. Full range of motion. No adenopathy thyromegaly or neck vein distention. Cardiovascular examination reveals regular rhythm rate. S1-S2 normal. No S3 or S4. No discernible murmur noted. Lungs reveal bilateral rhonchi and bibasilar crackles. No wheezes. Breath sounds equal bilaterally. Breath sounds are diminished throughout. Breath sounds are unchanged. Abdomen soft bowel sounds are heard. No masses or tenderness. Extremities are intact. No cyanosis clubbing or edema. Skin is without rash or lesion. Neurologic examination is brief but nonfocal. - Labs CBC & Chem 7: 06/21/20 07:40 06/21/20 07:40 Labs: Microbiology - Last 24 Hours (Table) 06/19/20 22:54 Blood Culture - Preliminary Blood No Growth after 72 hours 06/19/20 21:38 Blood Culture - Preliminary Blood No Growth after 72 hours Assessment and Plan Plan: 1 Acute hypoxemic respiratory failure secondary to COVID 19 pneumonia. The patient remains on 2 L about 2 by nasal cannula. The last chest x-ray was done on 06/23/2020 and the chest x-ray is showing some bilateral airspace disease which is essentially unchanged compared to the last chest x-ray findings. In terms of blood work, the patient has no recent blood work checked today. The patient remains on Lovenox for DVT prophylaxis 40 mg subcu every 24 hours. 2 History of vaping. Plan The patient continues on oxygen therapy at 2 L. Continue treatment with Decadron, REM day 4, and the rest of the medication which will be including vitamin C, vitamin D3, zinc Chest x-ray from today was noted She is a healthy 49-year-old female patient otherwise without any major comorbidities Lovenox for DVT prophylaxis Possible home tomorrow depending on her situation.
[2020-06-23] MEDS: TEMAZEPAM 15 MG CAP PO PRN (22:46)
[2020-06-24] MEDS: REMDESIVIR 100 MG in SODIUM CHLORIDE 0.9% 250 ML IVPB SCH (07:41)
[2020-06-24] MEDS: CHOLECALCIFEROL 25 MCG (1000 IU) TABLET PO SCH (07:42)
[2020-06-24] MEDS: ENOXAPARIN 40 MG/0.4 ML SYRINGE SQ SCH (07:42)
[2020-06-24] MEDS: dexAMETHasone 2 MG TAB PO SCH (07:42)
[2020-06-24] MEDS: ZINC SULFATE 220 MG CAP PO SCH (07:42)
[2020-06-24] MEDS: ASCORBIC ACID 500 MG TAB PO SCH (07:42)
[2020-06-24 09:36] VITALS: RESP 18
--- NOTE | 2020-06-24 11:52 | P.DS ---
Providers Date of admission: 06/19/20 22:58 Expected date of discharge: 06/24/20 Attending physician: Leobardo Arguello Consults: 06/19/20 23:01 Consult Physician Urgent Consulting Provider: Williams Lau Consult Reason/Comments: acute covid pna, hypoxia Do you want consulting provider notified?: Yes, Notify in am Primary care physician: Leobardo Arguello Hospital Course: Final Diagnoses: -Acute hypoxic respiratory failure secondary to covid19 pneumonia, resolved. -Elevated d-dimer secondary to infection patient is on Lovenox at this time -History of vaping -Depression Hospital course: This is a 49-year-old female admitted with Covid 19 pneumonia and subsequent hypoxic respiratory failure. Significant clinical improvement. Oxygen weaned off and maintaining O2 sats in the 90s on room air . Denies chest pain, palpitations or increasing shortness of breath. Denies lightheadedness dizziness or focal deficits. Denies nausea vomiting or diarrhea. Denies abdominal pain. Completed Remdesevir regimen in addition to Decadron, zinc, vitamin C, vitamin D and Lovenox. Patient will be discharged home on 5 more days of Decadron, continue vitamin C, vitamin D, zinc as well as daily aspirin 81 mg 2 months. Patient will be discharged home today in a stable condition with guarded prognosis pending final DC recommendations and clearance from pulmonary. The impression and plan of care has been dictated as directed. : I performed a history and examination of this patient, discussed the same with the dictator. I agree with the dictator's note ,documented as a scribe. Any additional findings or plans will be noted. Patient Condition at Discharge: Stable Plan - Discharge Summary Discharge Rx Participant: No New Discharge Prescriptions: New Zinc Sulfate [Orazinc] 220 mg PO DAILY cap Aspirin EC [Ecotrin Low Dose] 81 mg PO DAILY 60 Days #60 tablet. dexAMETHasone [Hexadrol] 6 mg PO DAILY #5 tab Ascorbic Acid [Vitamin C] 1,000 mg PO DAILY tab Cholecalciferol [Vitamin D3 (25 Mcg = 1000 Iu)] 25 mcg PO DAILY tablet Continue Ondansetron Odt [Zofran ODT] 4 mg PO Q8HR PRN 7 Days #21 tab PRN Reason: Nausea Venlafaxine HCl [Effexor XR] 37.5 mg PO DAILY Discharge Medication List Ondansetron Odt [Zofran ODT] 4 mg PO Q8HR PRN 7 Days #21 tab 06/13/20 [Rx] Venlafaxine HCl [Effexor XR] 37.5 mg PO DAILY 06/19/20 [History] Ascorbic Acid [Vitamin C] 1,000 mg PO DAILY tab 06/24/20 [Rx] Aspirin EC [Ecotrin Low Dose] 81 mg PO DAILY 60 Days #60 tablet. 06/24/20 [Rx] Cholecalciferol [Vitamin D3 (25 Mcg = 1000 Iu)] 25 mcg PO DAILY tablet 06/24/20 [Rx] Zinc Sulfate [Orazinc] 220 mg PO DAILY cap 06/24/20 [Rx] dexAMETHasone [Hexadrol] 6 mg PO DAILY #5 tab 06/24/20 [Rx] Follow up Appointment(s)/Referral(s): Leobardo Arguello DO [Primary Care Provider] - 06/27/20 10:40 am Williams Lau DO [Doctor of Osteopathic Medicine] - 1 Week Patient Instructions/Handouts: Coronavirus Disease 2019 (COVID-19)
--- NOTE | 2020-06-24 14:01 | P.PN ---
Subjective Progress Note Date: 06/24/20 COVID 19 pneumonia. 49-year-old female, who presents to the emergency department, with complaints of worsening shortness of breath. She states that she's been sick for about 6-7 days. She apparently tested positive for COVID 19 6 days ago. She was hoping to be able to weather the storm at home, but her symptoms worsened, and she decided to come in to be evaluated. She had all the typical symptoms of coronavirus infection. She had shortness of breath, cough, pain in the chest when she coughs, nausea, vomiting, diarrhea, headache, and just feeling very weak and fatigued. She lost some muscle aches and joint aches as well. We saw the patient in the emergency department. She was resting comfortably. She was on 2 L nasal cannula. When she was seen initially in the emergency department 6 days ago, she was discharged with some Zofran and Decadron. She states that those medications really did not seem to help very much. Her primary care physician is Dr. Leobardo Arguello. She really doesn't have much in the way of medical problems. She has had a tubal ligation, cholecystectomy, , appendectomy, and an ablation. She does vape. She denies use of tobacco products. White count is 3.3, with a lymphocyte of 0.7, hemoglobin 13, hematocrit 40.6, normal platelet count. Sodium 137, potassium 3.7, chloride 100, CO2 27, anion gap 10, BUN 17, and creatinine 0.72. D-dimer was 1.38. Ferritin is 320, AST 48, ALT 37, LDH 1397, C-reactive protein 395, and albumin 3.1. Progress note dated 06/21/2020. 49-year-old female we saw in consultation yesterday. She presented [facility] the [facility] with complaints of increasing and progressive shortness of breath. She's been sick for about 6 or 7 days. She tested positive for COVID 19 7 days ago. She was trying to take care of herself at home, and trying to avoid the hospital, but when her symptoms worsen, she came in to be evaluated. She is feeling a bit better today. She is on O2 at 2 L. Saturations are 93%. Temperature is normal. Blood pressure is stable. White count 6.22, hemoglobin 12.7, hematocrit 39.0, and platelet count 408,000. D-dimer is 1.38. Sodium 140, potassium 5.2, chlorides 105, CO2 29, anion gap 6, BUN 18, and creatinine 0.6. Computed tomography scan showed extensive bilateral pulmonary infiltrates consistent with COVID 19 pneumonitis. Progress note dated 06/22/2020. 49-year-old female, who was seen in consultation at couple days ago. She presented to the emergency department with complaints of increasing and progressive shortness of breath. She been sick for about 6 or 7 days and she tested positive for COVID 19, 8 days ago. She was trying to maintain herself at home and take care of herself at home and trying to avoid hospitalization. When her symptoms became worse, she came into the hospital to be evaluated. Currently, she is on 2 L nasal cannula with saturation of 92%. When I first went into the room, she was not on any supplemental oxygen, and her saturations were in the mid 70s. The patient feels about the same today as she did yesterday. No better, and no worse. No new laboratory data to report. No new chest x-ray. The patient is getting vitamin C, vitamin D3, Decadron, Lovenox, REM, and zinc. On today's evaluation of 06/23/2020 the patient is completing a course of REM and tomorrow will be day #5 and as such today is day #4. She is in hypoxic r espiratory failure and she is on oxygen at 2 L per minute nasal cannula. She is doing well. No respiratory difficulties. The patient is doing well for now. She is on 2 L about 2 by nasal cannula. She is resting comfortably in bed. No new issues for now. No respiratory difficulties. Treatment is and progress regarding her Covid 19 related pneumonia and respiratory failure. She is also on Decadron. She is on REM day for and she is also on Lovenox. 06/23/2020, the patient is doing well on room air oxygen. No respiratory difficulties. The plan is to get this patient home. The patient completed REM a total of 5 day course and the patient is on Decadron for now. No nausea. No vomiting. No abdominal pain. Lungs work from today shows a d-dimer of 0.95. No other significant events otherwise for now. Condition is stable for now. Objective - Vital Signs Vital signs: Vital Signs Temp 98.3 F 06/24/20 09:35 Pulse 71 06/24/20 09:35 Resp 18 06/24/20 09:35 BP 159/89 06/24/20 09:35 Pulse Ox 95 06/24/20 09:35 Intake & Output 06/23/20 06/24/20 06/24/20 18:59 06:59 18:59 Other: Voiding Method Toilet # Voids 3 2 - Exam No acute distress, oriented 3. Patient's saturations on RA, 93%. No conversational dyspnea, or use of accessory muscles. HEENT examination is grossly unremarkable. Mucous membranes are moist. No oral lesions. Neck supple. Full range of motion. No adenopathy thyromegaly or neck vein distention. Cardiovascular examination reveals regular rhythm rate. S1-S2 normal. No S3 or S4. No discernible murmur noted. Lungs reveal bilateral rhonchi and bibasilar crackles. No wheezes. Breath sounds equal bilaterally. Breath sounds are diminished throughout. Breath sounds are unchanged. Abdomen soft bowel sounds are heard. No masses or tenderness. Extremities are intact. No cyanosis clubbing or edema. Skin is without rash or lesion. Neurologic examination is brief but nonfocal. - Labs CBC & Chem 7: 06/21/20 07:40 06/21/20 07:40 Labs: Abnormal Lab Results - Last 24 Hours (Table) 06/24/20 Range/Units 07:04 D-Dimer 0.95 H (<0.60) mg/L FEU Microbiology - Last 24 Hours (Table) 06/19/20 22:54 Blood Culture - Preliminary Blood No Growth after 96 hours 06/19/20 21:38 Blood Culture - Preliminary Blood No Growth after 96 hours Assessment and Plan Plan: 1 Acute hypoxemic respiratory failure secondary to COVID 19 pneumonia. The patient on RA. Neck exam full. Oxygenation improved. Completed a total of 5 day course of REM and the patient is currently on Decadron. Clinically feeling better. 2 History of vaping. Plan The patient is currently on room air oxygen Continue treatment with Decadron, REM day 5, and the rest of the medication which will be including vitamin C, vitamin D3, zinc Chest x-ray from yesterday was noted She is a healthy 49-year-old female patient otherwise without any major comorbidities [facility], the d-dimer is no Possible home today to complete her course of Decadron on outpatient basis.
[2020-06-24 14:34] VITALS: BP 147/83; PULSE 81; TEMP 97.7
[2020-06-24 16:34] LABS: C Reactive Protein 3.8 mg/dL (0.0-0.8)
== END 2020-06-24 16:00 | disposition home or self-care (01) | DRG 177 ==
LOC: EC 18:53 → 4SSUR 22:58
PROVIDERS: ADMIT Family Medicine; ATTEND Family Medicine
PROC: XW033E5 Introduction of Remdesivir Anti-infective into Peripheral Vein, Percutaneous Approach, New Technology Group 5 (ICD-10-PCS; principal; 2020-06-19)
DX: U07.1 COVID-19 (principal); J12.82 Pneumonia due to coronavirus disease 2019; J96.01 Acute respiratory failure with hypoxia; J06.9 Acute upper respiratory infection, unspecified; F32.9 Major depressive disorder, single episode, unspecified; Z98.51 Tubal ligation status; Z90.49 Acquired absence of other specified parts of digestive tract; F17.290 Nicotine dependence, other tobacco product, uncomplicated; R79.1 Abnormal coagulation profile; Z79.899 Other long term (current) drug therapy
CPT/HCPCS: 36415; 71045; 71046; 71275; 80048; 80053; 82728; 83605; 83615; 83735; 84145; 85025; 85027; 85379; 85610; 85730; 86140; 87040; 93005; 94760; 96365; 96372; 96375; 99285